=== PATIENT | female | born 1930 | race African-American/Black ===

== ENCOUNTER 2016-08-16 09:21 | Inpatient (IN) ==
--- NOTE | 2016-08-16 09:54 | Emergency Department Note ---
Arrival - Arrival Chief Complaint: Extremity Problem Stated Complaint: legs swollen ED Nursing Triage Note: c/o leg swelling for a while. states has been going to the dr for it and theirs getting worse. Mode of Arrival: Wheelchair Limitations: No Limitations Source: Patient, Family Time Seen by Provider: 08/16/16 09:52 - History of Present Illness HPI Narrative: This 85-year-old female presents to ED complaining of swelling and pain in her lower extremities for 2 months. Family also reports some increased dyspnea over the last several days. There is no history of chest pain. Patient did have a nosebleed last night however she takes Eliquis for atrial fibrillation which she is in chronically. There is no history of any fever or chills. Patient has not been checked for DVT and has no history of DVT. Patient is normally followed by the [facility] and Dr. Gong. Allergies/Adverse Reactions: Allergies Allergy/AdvReac Type Severity Reaction Status Date / Time No Known Allergies Allergy Verified 09/08/15 15:51 Home Medications: Home Medications Medication Instructions Recorded Confirmed Type Allopurinol [Zyloprim] 100 mg PO DAILY 08/05/14 08/16/16 History Apixaban [Eliquis] 2.5 mg PO BID 08/05/14 08/16/16 History Furosemide Tab [Lasix Tab] 80 mg PO BID 08/05/14 08/16/16 History Loratadine [Claritin] 10 mg PO DAILY PRN 08/05/14 08/16/16 History traMADol TAB [Ultram] 50 mg PO Q8H PRN 08/05/14 08/16/16 History Cefdinir 300 mg PO BID 08/16/16 08/16/16 History Review of System - Review of System 12 point system: reviewed and no additional remarkable complaints except as stated - Review of System Respiratory: Present: respiratory distress Musculoskeletal: Present: as per HPI, other (Swelling of both lower extremities) Medical,Surgical,& Family Hx - Medical History Cardio: History of: Cardiac Dysrhythmia (CHRONIC AFIB), CHF, Hypertension Neurology: No history of: Seizures Rheumatology: History of;: Gout Renal: History of: Renal Failure (chronic kidney disease) Musculoskeletal: History of: Musculoskeletal Problems (ARTHRITIS TO RIGHT KNEE) Hematology: History of: Anemia - Social History Smoking Status: Never smoker Frequency of Alcohol Use: None Type of Drug Use: None Exam Vital Signs: Vital Signs Temperature 99.1 F 08/16/16 09:28 Pulse Rate 79 08/16/16 11:01 Respiratory Rate 18 08/16/16 11:01 Blood Pressure 108/65 08/16/16 11:01 O2 Sat by Pulse Oximetry 97 08/16/16 11:01 - General General appearance: alert, in no apparent distress - Head Head exam: Present: atraumatic - Eye Eye exam: Present: normal appearance, PERRL, EOMI - ENT ENT exam: Present: normal exam - Neck Neck exam: Present: normal inspection - Chest Chest inspection: Present: normal inspection - Respiratory Respiratory exam: Present: rales (Bibasilar). Absent: respiratory distress - Cardiovascular Cardiovascular exam: Present: regular rate, irregular rhythm, murmur (3/6 systolic ejection murmur). Absent: +S3 - Abdominal Exam Abdominal exam: Present: soft, normal bowel sounds. Absent: distention, tenderness - Rectal Exam Rectal exam: Present: deferred - Extremities Exam Extremities exam: Present: pedal edema (4+ bilaterally with chronic venous stasis changes) - Back Exam Back exam: Present: normal inspection - Neurological Exam Neurological exam: Present: alert - Psychiatric Psychiatric exam: Present: normal affect, normal mood - Skin Skin exam: Present: warm, dry Course Course Narrative: Patient discussed with the hospitalist who will admit for further evaluation. Results - Labs CBC & BMP: 08/16/16 10:35 08/16/16 10:35 Lab Results: I have reviewed the patients labs - EKG EKG results: interpreted by ERMD (Pacemaker rhythm, PVCs) - Diagnostic Findings Procedure: Chest x-ray: report reviewed by me (Mild congestive heart failure), Ultrasound: report reviewed by me (Ultrasound of the lower extremities showed no DVT.), X-ray: report reviewed by me (X-ray of the right knee reveal severe degenerative arthritis) Disposition Case discussed with: patient, patient's family
[2016-08-16] MEDS ORDERED: FUROSEMIDE 100 MG/10 ML VIAL IV STA (09:55)
--- NOTE | 2016-08-16 10:22 | Ultrasound Report ---
Exam: Bilateral lower extremity venous Doppler ultrasound Comparison: None Clinical history: Leg edema Technique: Duplex scan of the lower extremity veins using B-mode/grayscale scaled imaging and Doppler spectral analysis and color flow. Findings: Major venous structures of the lower extremities demonstrate a normal course and caliber. Normal color-flow study and spectral analysis. There is normal compression and augmentation of bilateral common femoral, superficial femoral and popliteal veins. The proximal bilateral greater saphenous veins appear to be patent. Impression: No evidence to suggest deep venous thrombosis within either lower extremity. Evidence of leg edema. Ultrasound images were captured and stored. PROCEDURE INTERPRETED AT [facility] DEPARTMENT OF RADIOLOGY Final Report Signed by: Dr. Jo Mary
--- NOTE | 2016-08-16 10:42 | XRay Report ---
Portable chest Date: 08/16/2016 Clinical history: Shortness of breath Comparison: 11/18/2015 Technique: Portable AP sitting chest Findings: Persistent prominent cardiomegaly with stable left subclavian ventricular permanent pacemaker. Progressive diffuse parenchymal findings with small pleural effusions. Stable mediastinum with degenerative changes. Chronic deformity of the shoulders. Impression: Persistent prominent cardiomegaly with findings are consistent with mild CHF with small pleural effusions. Left subclavian ventricular pacemaker. PROCEDURE INTERPRETED AT [facility] DEPARTMENT OF RADIOLOGY Final Report Signed by: Dr. Jo Mary
--- NOTE | 2016-08-16 10:46 | XRay Report ---
Exam: XR knee 2V RT Date: 08/16/2016 10:01 AM Comparison: 06/11/2010 Indication: Knee pain after fall Technique:[AP and lateral right knee] Findings: Progressive extensive knee joint space narrowing especially in the lateral compartment with chronic volume loss in the right lateral tibial plateau. Progressive lateral subluxation of the tibia in relationship to the distal femur. Progressive sclerosis with additional multiple ossific densities. 38 mm calcific finding in the suprapatellar location now measures 27 mm. Associated knee joint effusion with no definite acute fracture. Articular and arterial calcifications are noted. Impression: Progressive severe erosive osteoarthritis with progressive lateral subluxation of the proximal tibia in relationship to distal femur. No definite acute fracture is identified. Chronic volume loss in the right lateral tibial plateau which could be related to remote injury. Additional findings of synovial osteochondromatosis, loose bodies, articular calcification, and arterial calcifications. Soft tissue swelling with knee joint effusion. PROCEDURE INTERPRETED AT [facility] DEPARTMENT OF RADIOLOGY Final Report Signed by: Dr. Jo Mary
[2016-08-16 11:12] LABS: Basophils % 1.2 % (0.0-0.8); Eosinophils % 1.2 % (0.00-10.9); Hematocrit 37.8 VOL% (35.7-47.0); Hemoglobin 12.4 GM/DL (12.0-16.0); Immature Granulocytes % 0.3 %; Immature Granulocytes Absolute 0.01 #; Lymphocytes # 0.7 10*3/uL (1.4-4.0); Lymphocytes % 21.4 % (21.3-54.2); Mean Corpuscular HGB Conc 32.8 GM/DL (32-36); Mean Corpuscular Hemoglobin 34 PG (27-34); Mean Corpuscular Volume 102.4 FL (87-102); Mean Platelet Volume 10.1 FL (9.6-12.0); Monocytes # 0.3 10*3/uL (0.11-0.8); Monocytes % 9.9 % (1.7-12.7); Neutrophils # 2.2 10*3/uL (1.4-7.4); Platelet Count 204 T/CUMM (130-400); Red Blood Count 3.69 MC/CUMM (3.8-5.5); Red Cell Distribution Width 14.9 % (9.3-17.3); White Blood Count 3.3 T/CUMM (4-12)
[2016-08-16 11:13] LABS: INR 1.2; PT Patient Result 12.3 SECS
[2016-08-16 11:41] LABS: Albumin 3.3 G/DL (3.4-5.0); Bilirubin,Total 0.8 MG/DL (0.2-1.0); Calcium 9.4 MG/DL (8.5-10.1); Magnesium 3.7 MG/DL (1.8-2.4); Osmolality,Calculated 288.5 MOS/KG (273-304); Potassium 4.9 MMOL/L (3.5-5.1); Total Protein 6.9 G/DL (6.4-8.3)
[2016-08-16 11:44] LABS: Troponin I Only 0.263 NG/ML (0.00-0.045)
--- NOTE | 2016-08-16 12:24 | EKG Report ---
Stationary ECG Study [facility] Test Date: 08/16/2016 10:46:28 AM Pat Name: DIMAS CORRALES Department: Room: Gender: F Trade Marker: : 1930 Requested by: Andrew Renteria Order Number: [id number] Reading MD: HALLE REYES Intervals [place] Rate: 67 P: 999 [place]: 0 QRS: 134 QRSD: 174 T: -37 QT: 521 QTc: 536 Interpretive Statements ELECTRONIC VENTRICULAR PACEMAKER Electronically Signed On 08-22-16 08:25:05 CDT by HALLE REYES [email or web address]
[2016-08-16] MEDS ORDERED: ONDANSETRON 4 MG/2 ML VIAL IV PRN (13:49)
[2016-08-16] MEDS ORDERED: ACETAMINOPHEN 325 MG TABLET PO PRN (13:49)
[2016-08-16] MEDS ORDERED: ZALEPLON 5 MG CAPSULE PO PRN (13:49)
[2016-08-16] MEDS ORDERED: MAGNESIUM SULF RIDER 2 GM in PREMIX 1 EACH IV PRN (13:49)
[2016-08-16] MEDS ORDERED: MAGNESIUM SULF RIDER 4 GM in PREMIX 1 EACH IV PRN (13:49)
--- NOTE | 2016-08-16 13:59 | Hospitalist History & Physical ---
Assessment and Plan (1) CHF (congestive heart failure), NYHA class IV Status: Acute Assessment and plan: lasix 40 mg IV every 12 hours, house place, start coreg Current Visit: Yes (2) Renal failure Status: Acute Assessment and plan: renal us suspect chronic Current Visit: Yes (3) Chronic atrial fibrillation Status: Acute Assessment and plan: s/p pacer, coreg Current Visit: No (4) Arthritis of right knee Status: Acute Assessment and plan: OA with suluxation, Dr. Romo to see, PT and OT Current Visit: Yes History of Present Illness Chief complaint: Shortness of breath History of present illness: Ms. Elise is a 85 year old female presents to ED complaining of swelling in her lower extremities for 2 months and progressive SOB. Family also reports some increasing dyspnea over the last several days but denies chest pain. Patient is on Eliquis for chronic atrial fib which is rate controlled without medication. Patient has chronic problems with gout for which he takes allopurinol. Patient has renal failure which is mostly chronic and may worsen with diuretics. Patient is hard of hearing but lives on her own. The plan for her to go live with her daughter on discharge. No history of any fever or chills. Patient is normally followed by the [facility] and Dr. Gong. Home Medications Medication Instructions Recorded Confirmed Type Allopurinol [Zyloprim] 100 mg PO DAILY 08/05/14 08/16/16 History Apixaban [Eliquis] 2.5 mg PO BID 08/05/14 08/16/16 History Furosemide Tab [Lasix Tab] 80 mg PO BID 08/05/14 08/16/16 History Loratadine [Claritin] 10 mg PO DAILY PRN 08/05/14 08/16/16 History traMADol TAB [Ultram] 50 mg PO Q8H PRN 08/05/14 08/16/16 History Cefdinir 300 mg PO BID 08/16/16 08/16/16 History Allergies Allergy/AdvReac Type Severity Reaction Status Date / Time No Known Allergies Allergy Verified 09/08/15 15:51 Medical,Surgical,& Family Hx - Medical History Cardio: History of: Cardiac Dysrhythmia (CHRONIC AFIB), CHF, Hypertension Neurology: No history of: Seizures Rheumatology: History of;: Gout Renal: History of: Renal Failure (chronic kidney disease) Musculoskeletal: History of: Musculoskeletal Problems (ARTHRITIS TO RIGHT KNEE) Hematology: History of: Anemia - Surgical History Cardiac Surgeries: Sugical HX of: Internal Defibrillator HEENT Surgeries: Surgical HX of: Thyroid Surgery - Family History Family History: Reports;: Family Hypertension Denies;: Family Diabetes, Family Heart Disease - Social History Smoking Status: Never smoker Frequency of Alcohol Use: None Type of Drug Use: None Marital Status: Single Lives With:: Alone Functional capacity: independent ambulation - Constitutional Constitutional: Present: fatigue, weight gain. Absent: fever(s), headache(s) - EENT Eyes: Absent: blurry vision, diplopia Ears: Present: decreased hearing. Absent: ear discharge Nose, mouth and throat: Absent: headache(s), sore throat - Cardiovascular Cardiovascular: Present: dyspnea, dyspnea on exertion, edema, orthopnea. Absent : chest pain at rest, chest pain with activity - Respiratory Respiratory: Present: cough, dyspnea, dyspnea on exertion - Gastrointestinal Gastrointestinal: Present: constipation. Absent: diarrhea, nausea, vomiting - Genitourinary Genitourinary: Absent: difficulty urinating, dysuria - Neurological Neurological: Absent: confusion, headache(s), syncope - Psychiatric Psychiatric: Present: depression. Absent: anxiety - Endocrine Endocrine: Present: cold intolerance, fatigue. Absent: heat intolerance - Hematologic/Lymphatic Hematologic/Lymphatic: Absent: easy bleeding, easy bruising Exam - Constitutional Vitals: Period Temp Pulse Resp BP Sys/Nicholson Pulse Ox Last 24 Hr 98.6 F 59 23 117/77 95 General appearance: mild distress, over weight - Head Head exam: Present: normal inspection, normocephalic - Eye Eye exam: Present: EOMI. Absent: scleral icterus Pupils: Present: NICK, normal accommodation - ENT ENT exam: Present: normal exam, normal external ear exam - Neck Neck exam: Absent: lymphadenopathy, thyromegaly - Respiratory Respiratory exam: Present: decreased breath sounds. Absent: rhonchi, wheezes - Cardiovascular Cardiovascular exam: Present: bradycardia, irregular rhythm - GI/Abdominal GI/Abdominal exam: Present: normal bowel sounds, soft. Absent: tenderness - Extremities Exam Extremities exam: Present: normal capillary refill, edema (3+ pitting up to abdomen ) - Neurological Exam Neurological exam: Present: alert, oriented X3, CN II-XII intact, reflexes normal. Absent: motor sensory deficit - Psychiatric Psychiatric exam: Present: normal mood, flat affect - Skin Skin exam: Present: normal color, warm Results - Labs CBC & BMP: 08/16/16 10:35 08/16/16 10:35 Lab Results: I have reviewed the past 24 hour labs - EKG EKG shows: atrial fibrillation (paced rhythym with PVCs with IVCD and q waves in V1-2 and lead one ) - Diagnostic Findings Procedure: Chest x-ray: report reviewed by me (chf ), Ultrasound: report reviewed by me (no dvt ), X-ray: report reviewed by me (Progressive cervical severe erosive osteoarthritis with lateral subluxation of the proximal tibial to the distal femur no acute fracture noted)
--- NOTE | 2016-08-16 14:52 | EKG Report ---
Stationary ECG Study [facility] Test Date: 08/16/2016 2:50:56 PM Pat Name: DIMAS CORRALES Department: Room: 285 Gender: F Commercial Announcer: : 1930 Requested by: Allyson Batres Order Number: [id number] Reading MD: HALLE REYES Intervals [place] Rate: 73 P: 999 [place]: 0 QRS: -51 QRSD: 130 T: 119 QT: 470 QTc: 496 Interpretive Statements ATRIAL FIBRILLATION WITH DEMAND VENTRICULAR PACEMAKER. MARKED LEFT AXIS DEVIATION LEFT BUNDLE BRANCH BLOCK Electronically Signed On 08-22-16 11:07:10 CDT by HALLE REYES [email or web address]
--- NOTE | 2016-08-16 14:58 | Ultrasound Report ---
Exam: US renal Bilateral Date: 08/16/2016 2:10 PM Comparison: 08/23/2010 Indication: Renal failure Technique:[Multiple transabdominal real-time scans were obtained of the kidneys. Color flow scans obtained. Ultrasound images were captured and stored.] Findings: Right kidney measures 104 x 48 x 35 mm. Right kidney measured 102 mm in length on previous exam. Left kidney measures 107 x 59 x 58 mm. Left kidney measured 109 mm in length on the previous exam. No hydronephrosis. 17 mm simple appearing right mid pole renal cyst. 3 adjacent renal cyst are noted in the upper pole of the left kidney measuring 31 mm, 30 mm, and 42 mm. The kidneys appear echogenic relative to the adjacent liver. Incidental cholelithiasis and left pleural effusion. Impression: No hydronephrosis with bilateral renal cysts. 3 simple appearing cysts project adjacent to one another in the upper pole of the left kidney. Increased echogenicity in the kidneys which can be seen with medical renal disease. Cholelithiasis with left pleural effusion. PROCEDURE INTERPRETED AT [facility] DEPARTMENT OF RADIOLOGY Final Report Signed by: Dr. Jo Mary
--- NOTE | 2016-08-16 16:25 | ECHO Report ---
Treva Elise 08/16/2016 Exam Date: 14:50 Referring Physician: Darlin Gibbs Technologist: ROSEANN Age: 85 Ht (in): 66 Wt (lb): 171 FExam Location: [facility] Gender: Echo [id number]: Heart failure, unspecified, ChronicIndications:kidney disease, unspecified, Presence of cardiac pacemaker, Chronic a fib, Essential (primary) hypertension, Shortness of breath BP: / HR: 60 Atrial fibrillationRhythm: GoodTechnical Quality: IMPRESSIONS 1. Underlying rhythm is atrial fibrillation with controlled ventricular response. 2. Left ventricle is the upper limits normal size to mildly dilated with moderate concentric left ventricular hypertrophy. There is global hypokinesis with an ejection fraction 35-40%. 3. Right ventricle is mildly dilated with mild hypokinesis of free wall thickening. 4. Right and left atria are moderate to severely dilated. 5. Aortic valve is tricuspid with sclerosis and calcification but no stenosis. Trace to mild insufficiency is present. 6. Mitral valve is thickened with mild to moderate regurgitation. 7. Moderate to severe tricuspid valve regurgitation. 8. Mild pulmonic valve insufficiency. 8. Severely elevated right-sided pressures. MEASUREMENTS (Male / Female) Normal Values 2D ECHO LV Diastolic Diameter PLAX 5.4 cm 4.2 - 5.9 / 3.9 - 5.3 cm LV Systolic Diameter PLAX 3.7 cm LV Fractional Shortening PLAX 31.5 % IVS Diastolic Thickness 1.3 cm 0.6 - 1.0 / 0.6 - 0.9 cm LVPW Diastolic Thickness 1.3 cm 0.6 - 1.0 / 0.6 - 0.9 cm RV Internal Dim ED PLAX 3.5 cm Aortic Root Diameter 3.1 cm LA Systolic Diameter LX 4.0 cm 3.0 - 4.0 / 2.7 - 3.8 cm DOPPLER TR Peak Velocity 398.0 cm/s TR Peak Gradient 63.4 mmHg FINDINGS Left Ventricle Mildly increased left ventricular cavity size. Moderate left ventricular hypertrophy. Left ventricular ejection fraction is estimated at 35-40 %. Right Ventricle Right ventricle is mildly dilated with mild hypokinesis. There is RV free wall thickening. Catheter/pacemaker wire visualized in the right ventricle. Right Atrium Severely increased right atrial size. Catheter/pacemaker wire in the right atrial cavity. Left Atrium Moderately increased left atrial size Mitral Valve Thickened mitral valve. Mild-moderate mitral valve regurgitation. Aortic Valve Tricuspid aortic valve with moderate aortic valve calcification. Trace to mild aortic valve regurgitation. No aortic valve stenosis. Tricuspid Valve Morphologically normal tricuspid valve. [id number] tricuspid valve regurgitation. Tricuspid regurgitation velocities suggest a PAP of 73.4 mmHg. Pulmonic Valve Morphologically normal pulmonic valve. Mild pulmonary valve regurgitation. Pericardium Small to moderate pericardial effusion. Hemodynamically insignificant Aorta Normal ascending aorta dimension. Jonas Andres MD (Electronically Signed) 16 Aug 2016 16:24Final Date:
--- NOTE | 2016-08-16 16:28 | EKG Report ---
Stationary ECG Study [facility] Test Date: 08/16/2016 4:28:26 PM Pat Name: DIMAS CORRALES Department: Room: 285 Gender: F Publishing Editor: : 1930 Requested by: Allyson Batres Order Number: [id number] Reading MD: HALLE REYES Intervals [place] Rate: 67 P: 999 [place]: 0 QRS: 137 QRSD: 180 T: -33 QT: 497 QTc: 512 Interpretive Statements ATRIAL TACHYCARDIA/FLUTTER WITH ELECTRONIC VENTRICULAR PACEMAKER Electronically Signed On 08-22-16 11:13:07 CDT by HALLE REYES [email or web address]
[2016-08-16] MEDS: PANTOPRAZOLE 40 MG TABLET PO SCH (17:02)
[2016-08-16] MEDS: FUROSEMIDE 40 MG/4 ML VIAL IV SCH (17:02)
[2016-08-16 17:12] LABS: Apearance,Urine CLEAR (Clear); Bacteria,Urine Occasional /HPF (Few); Bilirubin,Urine Negative (Negative); Blood, Urine Negative (Negative); Glucose,Urine (UA) Negative (Negative); Ketones,Urine Negative (Negative); Mucus,Urine Occasional /LPF (Occasional); Nitrite,Urine Negative (Negative); Protein,Urine Negative; RBC,Urine <1 /HPF (0-4); Urine Color Yellow (Yellow); Urine Specific Gravity 1.011 (1.001-1.035); Urine Urobilinogen < 2.0 EU/DL (0.2-1.0); WBC,Urine <1 /HPF (0-6)
--- NOTE | 2016-08-16 18:07 | Orthopedic Consult Note ---
History of Present Illness Chief complaint: Right knee pain History of present illness: Ms. Elise is a 85 year old female who has a history of severe right knee Jacobo arthritis. I have seen her in the past. I advised her in 2004 to consider a right knee replacement. I have seen her last in 2010 where I injected her knee. The patient lives at home and ambulates either independently or with a cane. Patient has been admitted for CHF and acute on chronic renal failure. She also has a history of gout. The patient is poor historian and may have fallen recently. Exam right lower extremity shows no pain with logroll of her hip. Leg lengths are approximately equal. She has severe right knee osteoarthritis with 3+ pitting edema to the level of her proximal tibia. Because of the severe edema around her foot and ankle, I do not feel palpable pulses. Her toes are warm and pink. She can flex extend her toes. She has a severe valgus deformity at her knee with crepitus with range of motion. The knee is grossly stable to varus valgus stress. Radiographs knee show severe tricompartmental degenerative change with erosive changes involving the lateral compartment and a severe valgus deformity. She also has underlying osteopenia. Impression: Severe right knee osteoarthritis, primary. Plan: Unfortunately, there is not much to offer Ms. Elise with her advanced age and multiple comorbidities. I agree with physical therapy and she would benefit from a walker over a cane. Home Medications Medication Instructions Recorded Confirmed Type Allopurinol [Zyloprim] 100 mg PO DAILY 08/05/14 08/16/16 History Apixaban [Eliquis] 2.5 mg PO BID 08/05/14 08/16/16 History Furosemide Tab [Lasix Tab] 80 mg PO BID 08/05/14 08/16/16 History Loratadine [Claritin] 10 mg PO DAILY PRN 08/05/14 08/16/16 History traMADol TAB [Ultram] 50 mg PO Q8H PRN 08/05/14 08/16/16 History Cefdinir 300 mg PO BID 08/16/16 08/16/16 History Allergies Allergy/AdvReac Type Severity Reaction Status Date / Time No Known Allergies Allergy Verified 09/08/15 15:51 ROS unobtainable: due to dementia Medical,Surgical,& Family Hx - Medical History Cardio: History of: Cardiac Dysrhythmia (CHRONIC AFIB), CHF, Hypertension, Pacemaker (ICD) Psychological: History of: Depression Neurology: No history of: Seizures Rheumatology: History of;: Gout Renal: History of: Renal Failure (chronic kidney disease) Gastrointestinal: History of: GI Problems (constipation) Musculoskeletal: History of: Musculoskeletal Problems (ARTHRITIS TO RIGHT KNEE) Hematology: History of: Anemia - Surgical History Cardiac Surgeries: Sugical HX of: Internal Defibrillator HEENT Surgeries: Surgical HX of: Thyroid Surgery Abdominal Surgeries: Patient denies: Abdominal Surgery - Family History Family History: Reports;: Family Hypertension Denies;: Family Diabetes, Family Heart Disease - Social History Smoking Status: Never smoker Frequency of Alcohol Use: None Type of Drug Use: None Exam - Constitutional Vitals: Period Temp Pulse Resp BP Sys/Nicholson Pulse Ox Last 24 Hr 98.1 F-98.7 F 59-66 18-23 117-139/77-82 95 Results - Labs CBC & BMP: 08/16/16 10:35 08/16/16 10:35 Assessment and Plan (1) Arthritis of right knee Status: Chronic Current Visit: Yes
[2016-08-16] MEDS: CARVEDILOL 3.125 MG TABLET PO SCH (20:59)
[2016-08-16] MEDS: APIXABAN 2.5 MG TABLET PO SCH (20:59)
[2016-08-17 04:51] LABS: Basophils # 0.1 10*3/uL (0.0-0.2); Basophils % 1.1 % (0.0-0.8); Eosinophils # 0.1 10*3/uL (0.0-0.87); Hematocrit 33.8 VOL% (35.7-47.0); Hemoglobin 11.6 GM/DL (12.0-16.0); Immature Granulocytes % 0.5 %; Immature Granulocytes Absolute 0.02 #; Lymphocytes # 1.1 10*3/uL (1.4-4.0); Lymphocytes % 25.2 % (21.3-54.2); Mean Corpuscular HGB Conc 34.3 GM/DL (32-36); Mean Corpuscular Hemoglobin 34 PG (27-34); Mean Corpuscular Volume 99.7 FL (87-102); Mean Platelet Volume 10.3 FL (9.6-12.0); Monocytes # 0.5 10*3/uL (0.11-0.8); Monocytes % 11.1 % (1.7-12.7); Neutrophils # 2.6 10*3/uL (1.4-7.4); Neutrophils % 60.1 % (38.7-73.9); Platelet Count 173 T/CUMM (130-400); Red Blood Count 3.39 MC/CUMM (3.8-5.5); Red Cell Distribution Width 15.1 % (9.3-17.3); White Blood Count 4.4 T/CUMM (4-12)
[2016-08-17 05:31] LABS: Calcium 8.7 MG/DL (8.5-10.1); Osmolality,Calculated 291.3 MOS/KG (273-304); Potassium 4.4 MMOL/L (3.5-5.1); Risk Ratio 2.22; VLDL CHOLESTEROL 15.8 MG/DL
[2016-08-17] MEDS ORDERED: ASPIRIN CHEW 81 MG TABLET PO SCH (09:00)
[2016-08-17] MEDS: FUROSEMIDE 40 MG/4 ML VIAL IV SCH ×2 (09:14→16:05)
[2016-08-17] MEDS: CARVEDILOL 3.125 MG TABLET PO SCH ×2 (09:14→20:49)
[2016-08-17] MEDS: PANTOPRAZOLE 40 MG TABLET PO SCH (09:14)
[2016-08-17] MEDS: APIXABAN 2.5 MG TABLET PO SCH (09:37)
--- NOTE | 2016-08-17 16:14 | Hospitalist Progress Note ---
Assessment and Plan (1) CHF (congestive heart failure), NYHA class IV Status: Acute Assessment and plan: lasix 40 mg IV every 12 hours, cont coreg Current Visit: Yes (2) Renal failure Status: Acute Assessment and plan: renal us suggest chronic stage 3 disease Current Visit: Yes (3) Chronic atrial fibrillation Status: Acute Assessment and plan: s/p pacer, cont coreg, hold eliquis due to bleeding Current Visit: No (4) Arthritis of right knee Status: Chronic Assessment and plan: severe OA not surgical candidate. cont pt Current Visit: Yes (5) Hematuria Status: Acute Assessment and plan: hold eliquis and asa Current Visit: Yes Hospitalist: Subjective Interval history: Patient still has significant swelling. Daughter at bedside and given an update. Patient developed hematuria and her eliquis and asa were stopped. Exam - Constitutional Vitals: Period Temp Pulse Resp BP Sys/Nicholson Pulse Ox Last 24 Hr 97.6 F-98.7 F 61-70 16-20 96-121/49-71 99-100 Exam: Heart Rate-[IRR] Lungs-[diminished] GI-[+bs soft, NT] Ext-[3+ pitting edema to her abdomen] Neuro [Motor 5/5], [alert and oriented times 3] psych [normal mood and flat affect] General [no acute distress] Results - Labs CBC & BMP: 08/17/16 04:00 08/17/16 04:00 Lab Results: I have reviewed the past 24 hour labs - Diagnostic Findings Procedure: Ultrasound: report reviewed by me (Renal ultrasound consistent with medical renal disease. Echo Ef 35%, MR, severe TR, pul htn )
[2016-08-18 06:14] LABS: Basophils % 0.6 % (0.0-0.8); Eosinophils # 0.1 10*3/uL (0.0-0.87); Hematocrit 36.2 VOL% (35.7-47.0); Hemoglobin 12.3 GM/DL (12.0-16.0); Immature Granulocytes % 0.2 %; Immature Granulocytes Absolute 0.01 #; Lymphocytes # 1.2 10*3/uL (1.4-4.0); Lymphocytes % 22.9 % (21.3-54.2); Mean Corpuscular Hemoglobin 34 PG (27-34); Mean Corpuscular Volume 100.6 FL (87-102); Mean Platelet Volume 10.3 FL (9.6-12.0); Monocytes # 0.6 10*3/uL (0.11-0.8); Monocytes % 10.8 % (1.7-12.7); Neutrophils # 3.2 10*3/uL (1.4-7.4); Neutrophils % 63.5 % (38.7-73.9); Platelet Count 183 T/CUMM (130-400); White Blood Count 5.1 T/CUMM (4-12)
[2016-08-18 06:44] LABS: Calcium 8.8 MG/DL (8.5-10.1); Osmolality,Calculated 291.3 MOS/KG (273-304); Potassium 4.2 MMOL/L (3.5-5.1)
[2016-08-18] MEDS: PANTOPRAZOLE 40 MG TABLET PO SCH (08:16)
[2016-08-18] MEDS: FUROSEMIDE 40 MG/4 ML VIAL IV SCH ×2 (08:16→15:52)
[2016-08-18] MEDS: CARVEDILOL 3.125 MG TABLET PO SCH ×2 (08:16→21:21)
--- NOTE | 2016-08-18 11:31 | Physician Query Form ---
CLICK EDIT DOCUMENT TO SELECT QUERY ANSWER --> OK --> SIGN Linnea Hsu RN Clinical Nurse Advocate W) [phone] (f) [phone] [email or web address] PROVIDERS: Make your selection(s) from the choices in EACH section by typing an "x" and enter comments in the comment section. Please use your independent medical judgment in providing your response. This request does not imply that any particular answer is desired or expected. CLINICAL INDICATORS: (Providers should not edit this section) Based on documentation of "Patient developed hematuria and her eliquis and asa were stopped." Based on the above, could you clarify the appropriate diagnosis, if significant , that supports the above abnormalities and additional evaluation, monitoring, and/or treatment rendered: (x ) Hematuria due to anticoagulant therapy ( ) Hematuria NOT due to anticoagulant therapy ( ) Other, please specify: ( ) Clinically unable to determine COMMENTS: Use of terms such as suspected, likely, or probable (associated with a specific diagnosis that is being evaluated, monitored, or treated as if it exists) are acceptable and can be restated in the discharge summary if not ruled out. [facility]
[2016-08-18] MEDS: POLYETHYLENE GLYCOL POWDER 17 GM PACK PO SCH (12:51)
[2016-08-18] MEDS: BISACODYL 5 MG TABLET PO SCH (12:51)
--- NOTE | 2016-08-18 13:47 | Hospitalist Progress Note ---
Assessment and Plan (1) CHF (congestive heart failure), NYHA class IV Status: Acute Assessment and plan: Continue Lasix 40 mg IV every 12 hours, cont coreg, echocardiogram showed an EF of 35-40% with severe tricuspid regurg, mitral regurg and severe pulmonary hypertension Current Visit: Yes (2) Renal failure Status: Acute Assessment and plan: Continue to monitor, chronic stage 3 disease Current Visit: Yes (3) Chronic atrial fibrillation Status: Acute Assessment and plan: s/p pacer, cont coreg, continue to hold Eliquis due to bleeding Current Visit: No (4) Arthritis of right knee Status: Chronic Assessment and plan: severe OA not surgical candidate. cont pt Current Visit: Yes (5) Hematuria Status: Acute Assessment and plan: Still persist, hold eliquis and asa Current Visit: Yes Hospitalist: Subjective Interval history: Patient still having bleeding from catheter. Flush as needed. Patient is too weak to go back home to live with her daughter at this point. I recommend rehab and daughter is agreed. Patient is requested a laxative. Will get PT to evaluate her. Exam - Constitutional Vitals: Period Temp Pulse Resp BP Sys/Nicholson Pulse Ox Last 24 Hr 97.1 F-98.4 F 60-90 16-20 97-110/52-76 90-100 Exam: Heart Rate-[IRR] Lungs-[clear but diminished] GI-[+bs soft, NT] Ext-[2+ pitting edema to her abdomen] Neuro [Motor 5/5], [alert and oriented times 2] psych [normal mood and flat affect] General [no acute distress] Results - Labs CBC & BMP: 08/18/16 05:08 08/18/16 05:08 Lab Results: I have reviewed the past 24 hour labs
--- NOTE | 2016-08-18 17:59 | Urology Consultation ---
Assessment and Plan - Time spent with patient Time spent with patient: Less than 30 minutes (1) Hematuria Status: Acute Assessment and plan: I have ordered a renal ultrasound. We will remove the catheter in the morning. If she goes to swing bed then we will reappoint her to the office and we will schedule cystoscopy. Current Visit: Yes History of Present Illness - Data of Consult Patient: new to practice Consult date: 08/18/16 Requesting Physician: Allyson Mayen - Consult Narrative Reason for consult: Hematuria History of present illness: Ms. Elise is a 85 year old female who has multiple medical problems. She has some cardiac problems which include valvular regurg and pulmonary hypertension. They began her on Eliquis. She began having gross hematuria. Eliquis is been stopped. Now her urine is clearing up. She is planning to be transferred to swing bed tomorrow. If urine remains clear in the morning we will remove her catheter. I will check a renal ultrasound. In the future she needs cystoscopy. CC: Allyson Mayen MD - Home Medications and Allergies Home Medications: Home Medications Medication Instructions Recorded Confirmed Type Allopurinol [Zyloprim] 100 mg PO DAILY 08/05/14 08/16/16 History Apixaban [Eliquis] 2.5 mg PO BID 08/05/14 08/16/16 History Furosemide Tab [Lasix Tab] 80 mg PO BID 08/05/14 08/16/16 History Loratadine [Claritin] 10 mg PO DAILY PRN 08/05/14 08/16/16 History traMADol TAB [Ultram] 50 mg PO Q8H PRN 08/05/14 08/16/16 History Cefdinir 300 mg PO BID 08/16/16 08/16/16 History Allergies/Adverse Reactions: Allergies Allergy/AdvReac Type Severity Reaction Status Date / Time No Known Allergies Allergy Verified 09/08/15 15:51 Exam - Constitutional Vitals: Period Temp Pulse Resp BP Sys/Nicholson Pulse Ox Last 24 Hr 97.1 F-98.3 F 60-90 16-20 97-110/52-76 90-100 Results - Labs CBC & BMP: 08/18/16 05:08 08/18/16 05:08
[2016-08-19 05:00] LABS: Basophils % 0.4 % (0.0-0.8); Eosinophils # 0.1 10*3/uL (0.0-0.87); Eosinophils % 1.9 % (0.00-10.9); Hematocrit 35.6 VOL% (35.7-47.0); Immature Granulocytes % 0.4 %; Immature Granulocytes Absolute 0.02 #; Lymphocytes # 1.1 10*3/uL (1.4-4.0); Lymphocytes % 22.2 % (21.3-54.2); Mean Corpuscular HGB Conc 33.7 GM/DL (32-36); Mean Corpuscular Hemoglobin 34 PG (27-34); Mean Corpuscular Volume 99.4 FL (87-102); Monocytes # 0.6 10*3/uL (0.11-0.8); Monocytes % 11.8 % (1.7-12.7); Neutrophils % 63.3 % (38.7-73.9); Platelet Count 170 T/CUMM (130-400); Red Blood Count 3.58 MC/CUMM (3.8-5.5); White Blood Count 4.7 T/CUMM (4-12)
[2016-08-19 05:31] LABS: Calcium 8.4 MG/DL (8.5-10.1); Osmolality,Calculated 288.4 MOS/KG (273-304); Potassium 4.1 MMOL/L (3.5-5.1)
[2016-08-19] MEDS: POLYETHYLENE GLYCOL POWDER 17 GM PACK PO SCH (09:16)
[2016-08-19] MEDS: BISACODYL 5 MG TABLET PO SCH (09:16)
[2016-08-19] MEDS: CARVEDILOL 3.125 MG TABLET PO SCH ×2 (09:16→20:29)
[2016-08-19] MEDS: PANTOPRAZOLE 40 MG TABLET PO SCH (09:17)
[2016-08-19] MEDS: FUROSEMIDE 40 MG/4 ML VIAL IV SCH ×2 (09:20→15:26)
--- NOTE | 2016-08-19 15:52 | Hospitalist Progress Note ---
Assessment and Plan (1) CHF (congestive heart failure), NYHA class IV Status: Acute Assessment and plan: Decrease Lasix to once a day. Continue Coreg twice a day. Echocardiogram shows an EF of 35-40% Current Visit: Yes (2) Renal failure Status: Acute Assessment and plan: Stable stage III Current Visit: Yes (3) Chronic atrial fibrillation Status: Acute Assessment and plan: s/p pacer rate controlled with Coreg. No Eliquis due to bleeding Current Visit: No (4) Arthritis of right knee Status: Chronic Assessment and plan: severe OA not surgical candidate. cont pt Current Visit: Yes (5) Hematuria Status: Acute Assessment and plan: Improving. Will remove Dow. Dr. Whaley is seen. Continue to hold Eliquis and aspirin. Current Visit: Yes Hospitalist: Subjective Interval history: Spoke to physical therapy. Patient is mod assist to get out of the bed and up, but does okay when she is up. Patient has been accepted to rehab and I will let her go on Monday. Still having some hematuria. Dr. Whaley wants to remove the Dow today. Exam - Constitutional Vitals: Period Temp Pulse Resp BP Sys/Nicholson Pulse Ox Last 24 Hr 96.7 F-98.3 F 59-127 16-18 99-111/63-80 90-100 Exam: Heart Rate-[IRR] Lungs-[clear GI-[+bs soft, NT] Ext-[1+ pitting edema to her abdomen] Neuro [Motor 5/5 but weak], [alert and oriented times 2] psych [normal mood and flat affect] General [no acute distress] Results - Labs CBC & BMP: 08/19/16 03:35 08/19/16 03:35 Lab Results: I have reviewed the past 24 hour labs Specialty Discharge - Follow Up or Referrals Follow up with: Oleg Whaley MD [Physician] - 1 Month
[2016-08-19] MEDS ORDERED: MAGNESIUM CITRATE 300 ML BOTTLE PO ONE (16:06)
[2016-08-20] MEDS ORDERED: FUROSEMIDE 40 MG/4 ML VIAL IV SCH (09:00)
[2016-08-20] MEDS: POLYETHYLENE GLYCOL POWDER 17 GM PACK PO SCH (09:11)
[2016-08-20] MEDS: BISACODYL 5 MG TABLET PO SCH (09:11)
[2016-08-20] MEDS: CARVEDILOL 3.125 MG TABLET PO SCH ×2 (09:11→20:43)
[2016-08-20] MEDS: metOLazone 5 MG TABLET PO SCH (09:11)
[2016-08-20] MEDS: PANTOPRAZOLE 40 MG TABLET PO SCH (09:11)
[2016-08-20] MEDS: FUROSEMIDE 40 MG/4 ML VIAL IV SCH ×2 (09:12→20:43)
--- NOTE | 2016-08-20 14:03 | Hospitalist Progress Note ---
Assessment and Plan (1) CHF (congestive heart failure), NYHA class IV Status: Acute Assessment and plan: BNP 1162, Continue Coreg twice a day. cont lasix IV and zaroxlyn. Echocardiogram shows an EF of 35-40% Current Visit: Yes (2) Renal failure Status: Acute Assessment and plan: Stable stage III Current Visit: Yes (3) Chronic atrial fibrillation Status: Acute Assessment and plan: s/p pacer rate controlled with Coreg. No Eliquis due to bleeding Current Visit: No (4) Arthritis of right knee Status: Chronic Assessment and plan: severe OA not surgical candidate. cont pt Current Visit: Yes (5) Hematuria Status: Acute Assessment and plan: Improving. Current Visit: Yes Hospitalist: Subjective Interval history: BNP is still rising. Patient still having some bloody urine. Dow was removed and patient is urinating. Exam - Constitutional Vitals: Period Temp Pulse Resp BP Sys/Nicholson Pulse Ox Last 24 Hr 98 F-98.9 F 60-70 16-20 98-112/58-70 92-98 Exam: Heart Rate-[IRR] Lungs-[clear GI-[+bs soft, NT] Ext-[1+ pitting edema to her abdomen] Neuro [Motor 5/5 but weak], [alert and oriented times 2] psych [normal mood and flat affect] General [no acute distress] Results - Labs CBC & BMP: 08/19/16 03:35 08/19/16 03:35 Lab Results: I have reviewed the past 24 hour labs Specialty Discharge - Follow Up or Referrals Follow up with: Oleg Whaley MD [Physician] - 1 Month
[2016-08-21] MEDS: BISACODYL 5 MG TABLET PO SCH (08:45)
[2016-08-21] MEDS: PANTOPRAZOLE 40 MG TABLET PO SCH (08:45)
[2016-08-21] MEDS: metOLazone 5 MG TABLET PO SCH (08:45)
[2016-08-21] MEDS: CARVEDILOL 3.125 MG TABLET PO SCH ×2 (08:45→20:26)
[2016-08-21] MEDS: FUROSEMIDE 40 MG/4 ML VIAL IV SCH ×2 (08:46→20:26)
[2016-08-21] MEDS: POLYETHYLENE GLYCOL POWDER 17 GM PACK PO SCH (08:51)
--- NOTE | 2016-08-21 10:15 | Hospitalist Progress Note ---
Assessment and Plan (1) CHF (congestive heart failure), NYHA class IV Status: Acute Assessment and plan: Continue Coreg, lasix and zaroxlyn. Echocardiogram shows an EF of 35-40% Current Visit: Yes (2) Renal failure Status: Acute Assessment and plan: Stable stage III Current Visit: Yes (3) Chronic atrial fibrillation Status: Acute Assessment and plan: s/p pacer rate controlled with Coreg. No Eliquis due to bleeding Current Visit: No (4) Arthritis of right knee Status: Chronic Assessment and plan: severe OA not surgical candidate. cont pt Current Visit: Yes (5) Hematuria Status: Acute Assessment and plan: Improving. Current Visit: Yes (6) Pulmonary hypertension Status: Acute Assessment and plan: Patient has severe pulmonary hypertension continue oxygen for support Current Visit: Yes Hospitalist: Subjective Interval history: Hematuria improving. Accepted to rehab tomorrow. Should be okay for her to go. Fluid status better. Exam - Constitutional Vitals: Period Temp Pulse Resp BP Sys/Nicohlson Pulse Ox Last 24 Hr 98 F-99.5 F 59-70 18-20 91-106/50-70 93-98 Exam: Heart Rate-[IRR] Lungs-[clear GI-[+bs soft, NT] Ext-[1+ pitting edema to her abdomen] Neuro [Motor 5/5 but weak], [alert and oriented times 2] psych [normal mood and flat affect] General [no acute distress] Results - Labs CBC & BMP: 08/19/16 03:35 08/19/16 03:35 Lab Results: I have reviewed the past 24 hour labs Specialty Discharge - Follow Up or Referrals Follow up with: Oleg Whaley MD [Physician] - 1 Month
[2016-08-22 05:25] LABS: Calcium 8.3 MG/DL (8.5-10.1); Osmolality,Calculated 284.7 MOS/KG (273-304); Potassium 3.8 MMOL/L (3.5-5.1)
[2016-08-22] MEDS: PANTOPRAZOLE 40 MG TABLET PO SCH (09:14)
[2016-08-22] MEDS: POLYETHYLENE GLYCOL POWDER 17 GM PACK PO SCH (09:14)
[2016-08-22] MEDS: metOLazone 5 MG TABLET PO SCH (09:14)
[2016-08-22] MEDS: BISACODYL 5 MG TABLET PO SCH (09:14)
[2016-08-22] MEDS: FUROSEMIDE 40 MG/4 ML VIAL IV SCH (09:15)
[2016-08-22] MEDS: CARVEDILOL 3.125 MG TABLET PO SCH (09:23)
--- NOTE | 2016-08-22 11:48 | Discharge Summary ---
Hospital Course - Hospital Course Hospital Course: Mrs Elise presented with worsening of her baseline shortness of breath.She had exacerbation of her chronic systolic heart failrue and at baseline has class IV symptoms. She was diuresed and is feeling better and at her baseline. Her renal function had worsened on admission but has also returned to baseline creatinine of 2.2. She is eating ok and working with PT. She will go to swing bed today. She has pulmonary HTN and will benefit from continuous O2. She has a small area of breakdown on her buttock which the wound care nurse is to evaluate and document prior to discharge. The swing bed will continue local care. She had hematuria and her Eliquis which she was on for underlying afib (has pacer now) was stopped. She will need outpatient follow up with Dr Whaley. - Time spent with patient Time with patient DS: Greater than 30 minutes (40 minutes in exam, chart review , discussion with family, medicine reconciliation, documentation.) Diagnosis - Discharge Diagnosis (1) CKD (chronic kidney disease) stage 4, GFR 15-29 ml/min Status: Chronic (2) Chronic atrial fibrillation Status: Chronic (3) Cardiac pacemaker in situ Status: Chronic (4) Arthritis of right knee Status: Chronic (5) CHF (congestive heart failure), NYHA class IV Status: Acute (6) Hematuria Status: Acute (7) Pulmonary hypertension Status: Chronic Specialty Discharge - Follow Up or Referrals Follow up with: Oleg Whaley MD [Physician] - 1 Month your, PCP [Other] - 2 Weeks Discharge Plan - Discharge Data Disposition: Swing Bed, [facility] Based, [facility] Condition at Discharge: Stable Discharge Diet: heart healthy, low salt diet Activity: as per physical therapy, wear oxygen at all times - Discharge Medications New Acetaminophen Tab [Tylenol Tab] 650 mg PO Q4H PRN #0 tablet PRN Reason: Fever, Headache, Mild Pain Bisacodyl Tab [Dulcolax Tab] 10 mg PO DAILY PRN tablet PRN Reason: constipation Carvedilol [Coreg] 3.125 mg PO BID tablet Pantoprazole Tab [Protonix Tab] 40 mg PO DAILY tablet Zaleplon [Sonata] 5 mg PO BEDTIME PRN #0 capsule PRN Reason: Insomnia metOLazone [Zaroxolyn] 5 mg PO DAILY tablet Polyethylene Glycol Powder [Miralax] 17 gm PO DAILY Continue Furosemide Tab [Lasix Tab] 80 mg PO BID Allopurinol [Zyloprim] 100 mg PO DAILY Discontinued Loratadine [Claritin] 10 mg PO DAILY PRN PRN Reason: Sinus Symptoms Apixaban [Eliquis] 2.5 mg PO BID traMADol TAB [Ultram] 50 mg PO Q8H PRN PRN Reason: Pain Cefdinir 300 mg PO BID - Follow Up or Referral Follow Up: Oleg Whaley MD [Physician] - 1 Month - Forms/Instructions Additional Discharge Instructions: continue local wound care to small area of breakdown on buttock. Wound care to see today. Exam - Constitutional Vitals: Period Temp Pulse Resp BP Sys/Nicholson Pulse Ox Last 24 Hr 97.7 F-98.5 F 48-67 16-20 90-118/52-64 94-99 General appearance: normal weight, no acute distress - Head Head exam: Present: normocephalic, atraumatic - Eye Eye exam: Present: EOMI. Absent: scleral icterus - Respiratory Respiratory exam: Present: clear to auscultation bilaterally - Cardiovascular Cardiovascular exam: Present: regular rate and rhythm - GI/Abdominal GI/Abdominal exam: Present: normal bowel sounds, soft - Extremities Exam Extremities exam: Absent: edema - Neurological Exam Neurological exam: Present: alert, oriented X3 - Skin Skin exam: Present: warm, dry Discharge Results Labs on day of discharge: Labs from last 24 hours 08/22/16 04:04 Sodium 138 Potassium 3.8 Chloride 96 L Carbon Dioxide 33 H Anion Gap 12.8 BUN 44 H Creatinine 2.20 H GFR Calculation 24 BUN/Creatinine Ratio 20.00 Glucose 83 Calculated Osmolality 284.7 Calcium 8.3 L DS: Provider Date of admission: 08/16/16 12:31 Primary care physician: . No PCP Attending physician on admission: Allyson Mayen MD Consults: 08/16/16 14:07 Consult to Physician [CONS] Routine Comment: right knee severe OA with subluxation Consulting Provider: Dominic Romo Jr. When should Consulting Provider be notified: Now Consult to Specialist Group: Orthopedic Person Notified: MARIE Date Notified: 08/16/16 Time Notified: 14:30 08/16/16 14:08 Consult to Occupational Therapy [CONS] Routine Reason for Occupational Therapy: Evaluate and Treat Consult to Physical Therapy [CONS] Routine Reason for Physical Therapy: Evaluate and Treat 08/18/16 10:58 Consult to Case Mgmt/Social Srvs [CONS] Routine Reason for Case Mgmt/Social Srvs: Discharge Planning Consult Comment: SB placement 08/18/16 13:50 Consult to Physician [CONS] Routine Comment: persistent hematuria, despite holding eliquis asa Consulting Provider: Oleg Whaley When should Consulting Provider be notified: Now Person Notified: Phoebe Date Notified: 08/18/16 Time Notified: 13:55 Discharging clinician: Sandra De Oliveira MD
[2016-08-22] MEDS ORDERED: DESITIN 4OZ/NYSTATIN 15 GRAM MIXTURE PASTE TOP SCH (12:00)
[2016-08-22 12:18] VITALS: BP 92/56
== END 2016-08-22 13:30 | disposition swing bed (61) | DRG 292 ==
LOC: N.ED 09:21 → N.EDINP 12:31 → SUATTDRO 12:31 → N.TELEN 12:46
PROVIDERS: ADMIT Internal Medicine; ATTEND Internal Medicine

== ENCOUNTER 2016-09-11 17:20 | Inpatient (IN) ==
[2016-09-11] MEDS ORDERED: methylPREDNISolone SOD SUC 125 MG/2 ML VIAL IV STA (17:55)
[2016-09-11] MEDS ORDERED: MORPHINE 2 MG/1 ML SYRINGE IV STA (17:55)
[2016-09-11] MEDS ORDERED: ALBUTEROL/IPRATROPIUM 3 ML NEB RESP TX STA (17:55)
[2016-09-11] MEDS ORDERED: ALUM/MAG/SIMETH/LIDO VISC 1:1 30 ML BOTTLE PO STA (17:55)
[2016-09-11] MEDS ORDERED: ONDANSETRON 4 MG/2 ML VIAL IV STA (17:55)
[2016-09-11] MEDS ORDERED: FUROSEMIDE 40 MG/4 ML VIAL IV STA ×2 (17:55→18:59)
[2016-09-11] MEDS ORDERED: ASPIRIN 325 MG TABLET PO STA (17:55)
--- NOTE | 2016-09-11 18:00 | EKG Report ---
Stationary ECG Study [facility] ER Test Date: 09/11/2016 5:41:07 PM Pat Name: DIMAS CORRALES Department: Room: 286 Gender: F Director Of Group Counseling Program: : 1930 Requested by: Evangelist Denton Order Number: [id number] Laura MD: URI ZACARIAS Intervals [place] Rate: 84 P: 999 WV: 0 QRS: -76 QRSD: 129 T: 110 QT: 412 QTc: 453 Interpretive Statements ATRIAL FIBRILLATION WITH ABERRANT CONDUCTION OR VENTRICULAR PREMATURE COMPLEXES POSSIBLE ANTERIOR MYOCARDIAL INFARCTION, OF INDETERMINATE AGE INFERIOR MYOCARDIAL INFARCTION, OLD Electronically Signed On 09-12-16 16:25:15 CDT by UIR ZACARIAS [email or web address]
[2016-09-11 18:02] LABS: Basophils % 0.1 % (0.0-0.8); Hematocrit 42.9 VOL% (35.7-47.0); Hemoglobin 15.1 GM/DL (12.0-16.0); Immature Granulocytes % 0.5 %; Immature Granulocytes Absolute 0.04 #; Lymphocytes # 0.9 10*3/uL (1.4-4.0); Lymphocytes % 11.6 % (21.3-54.2); Mean Corpuscular HGB Conc 35.2 GM/DL (32-36); Mean Corpuscular Hemoglobin 34 PG (27-34); Mean Corpuscular Volume 97.3 FL (87-102); Mean Platelet Volume 10.1 FL (9.6-12.0); Monocytes # 0.5 10*3/uL (0.11-0.8); Monocytes % 6.8 % (1.7-12.7); Neutrophils # 6.2 10*3/uL (1.4-7.4); Platelet Count 148 T/CUMM (130-400); Red Blood Count 4.41 MC/CUMM (3.8-5.5); Red Cell Distribution Width 13.2 % (9.3-17.3); White Blood Count 7.7 T/CUMM (4-12)
[2016-09-11] MEDS ORDERED: ONDANSETRON 4 MG/2 ML VIAL ONE (18:06)
[2016-09-11] MEDS ORDERED: FUROSEMIDE 40 MG/4 ML VIAL ONE ×2 (18:06→19:04)
[2016-09-11] MEDS ORDERED: MORPHINE 2 MG/1 ML SYRINGE ONE (18:07)
[2016-09-11] MEDS ORDERED: ASPIRIN 325 MG TABLET ONE (18:07)
[2016-09-11] MEDS ORDERED: methylPREDNISolone SOD SUC 125 MG/2 ML VIAL ONE (18:08)
[2016-09-11] MEDS ORDERED: ALUM/MAG/SIMETH/LIDO VISC 1:1 30 ML BOTTLE PO ONE (18:08)
--- NOTE | 2016-09-11 18:09 | Emergency Department Note ---
Andrés Jackson Emily, am scribing for, and in the presence of, Evangelist Chua MD 17: 56. Toma Jackson Charles R, MD, personally performed the services described in this documentation, ascribed by Michelle Bowen in my presence, and it is both accurate and complete 808 . Arrival - Arrival Chief Complaint: Chest Pain Stated Complaint: chest pain ED Nursing Triage Note: c/o having chest pain x 30 minute,+ sob., + coughing and congestion, decrease appetite., denies vomiting., denies having increase temp, + chills., states sleeping more than usual Mode of Arrival: Wheelchair Limitations: No Limitations Source: Patient Time Seen by Provider: 09/11/16 17:36 - History of Present Illness HPI Narrative: Pt is 85 y/o female who came to ED with c/o SOB and chest pain that started 30 minutes [employer]IOR [employer] DEVEL[employer]. Pt notes chest pain has resolved but SOB is lingering. Pt has associated sxs of RODRIGUEZ, bilateral pedal edema, wet cough, and decreased appetite. Pt has low grade fever in ED but denies any at home. Pt is not on blood thinners or aspirin and recently taken off water pills. Pt was d/c at [facility] on Monday for swing bed. PMhx of CHF. Pt lives with daughter in which reports barely moving around and is not on at home O2. Onset (ago): minute(s) Consistency: constant Severity: moderate Severity scale (1-10): 6 Quality: fullness Allergies/Adverse Reactions: Allergies Allergy/AdvReac Type Severity Reaction Status Date / Time No Known Allergies Allergy Verified 09/11/16 17:27 Home Medications: Home Medications Medication Instructions Recorded Confirmed Type Loratadine [Loratadine] 10 mg PO DAILY PRN 09/11/16 09/11/16 History Potassium Chloride 20 meq PO BID 09/11/16 09/11/16 History Review of System - Review of System 12 point system: reviewed and no additional remarkable complaints except as stated - Review of System Constitutional: Present: weakness. Absent: chills, fever Head/Ears/Nose/Throat: Absent: sore throat Respiratory: Present: cough, respiratory distress Cardiovascular: Present: chest pain, dyspnea on exertion, orthopnea, edema. Absent: syncope Gastrointestinal: Absent: abdominal pain, nausea, vomiting, diarrhea Skin: Absent: rash Neurological: Absent: headache Psychiatric: Absent: anxiety Medical,Surgical,& Family Hx - Medical History Cardio: History of: Cardiac Dysrhythmia (CHRONIC AFIB), CHF, Hypertension, Pacemaker (ICD) Psychological: History of: Depression Neurology: No history of: Seizures Rheumatology: History of;: Gout Renal: History of: Renal Failure (chronic kidney disease) Gastrointestinal: History of: GI Problems (constipation) Musculoskeletal: History of: Musculoskeletal Problems (ARTHRITIS TO RIGHT KNEE) No history of: Amputation Hematology: History of: Anemia - Surgical History Cardiac Surgeries: Sugical HX of: Internal Defibrillator HEENT Surgeries: Surgical HX of: Thyroid Surgery (1999) Patient denies: Tonsilectomy & Adenoidectomy Abdominal Surgeries: Surgical HX of: Colonoscopy Patient denies: Abdominal Surgery Reproductive Surgeries: Patient denies;: Genitourinary Surgery, Gynecologic Surgery - Family History Family History: noncontributory Family History: Reports;: Family Heart Disease, Family Hypertension Denies;: Family Diabetes - Social History Smoking Status: Never smoker Frequency of Alcohol Use: None Type of Drug Use: None Marital Status: Single Lives With:: Children Functional capacity: independent ambulation Exam Vital Signs: Vital Signs Temperature 100.0 F H 09/11/16 17:31 Pulse Rate 71 09/11/16 18:30 Respiratory Rate 12 09/11/16 18:30 Blood Pressure 107/75 09/11/16 18:30 O2 Sat by Pulse Oximetry 100 09/11/16 18:30 - General General appearance: alert, in no apparent distress - Head Head exam: Present: atraumatic, normocephalic - Eye Eye exam: Present: PERRL, EOMI - ENT ENT exam: Present: mucous membranes moist. Absent: mucous membranes dry - Neck Neck exam: Present: full ROM. Absent: tenderness - Chest Chest inspection: Present: symmetric chest wall rise. Absent: tenderness - Respiratory Respiratory exam: Present: rales, respiratory distress (mild), rhonchi (harsh), wheezes. Absent: normal lung sounds bilaterally - Cardiovascular Cardiovascular exam: Present: regular rate, normal rhythm, normal heart sounds - Abdominal Exam Abdominal exam: Present: soft. Absent: distention, tenderness - Extremities Exam Extremities exam: Present: full ROM, pedal edema (discoloration from chronic swelling but has improved; +2). Absent: tenderness - Neurological Exam Neurological exam: Present: alert, oriented X3, CN II-XII intact. Absent: motor sensory deficit - Psychiatric Psychiatric exam: Present: normal affect, normal mood - Skin Skin exam: Present: warm, dry Course - Consultations Consultation #1: Hospitalist will admit patient Time: 19:05 Results - Labs CBC & BMP: 09/11/16 17:51 09/11/16 17:51 Lab Results: I have reviewed the patients labs Labs: Laboratory Tests 09/11/16 17:51 Neut % (Auto) 81.0 H Lymph % (Auto) 11.6 L Lymph # (Auto) 0.9 L Laboratory Tests 09/11/16 17:51 Troponin I 0.339 H Laboratory Tests 09/11/16 09/11/16 09/11/16 17:51 17:51 18:26 Sodium 132 L Chloride 89 L Carbon Dioxide 34 H BUN 66 H Creatinine 2.30 H BUN/Creatinine Ratio 28.00 H Glucose 115 H Magnesium 3.0 H Alkaline Phosphatase 164 H B-Natriuretic Peptide 1635 H Albumin 3.0 L Globulin 4.9 H Albumin/Globulin Ratio 0.6 L Urine Appearance Slightly hazy Urine pH 6.0 Ur Specific Kramer 1.013 Urine Protein 30 Urine Blood Negative Urine Urobilinogen 2.0 H Urine Leukocytes Small H Urine RBC 2 Urine WBC 8 Ur Squamous Epith Cells Occasional Ur Transition Epith Cell Occasional Hyaline Casts 1 Urine Mucus Occasional Critical Care Time Critical Care Time: Yes Total Critical Care Time: 60 Disposition Clinical Impression: Chest pain, Atypical chest pain, Peripheral edema, CHF (congestive heart failure), NYHA class IV, Renal failure, CKD (chronic kidney disease) stage 4, GFR 15-29 ml/min, Debility, Chronic atrial fibrillation, Cardiac pacemaker in situ, Fever, UTI (urinary tract infection) Case discussed with: patient, patient's family Disposition: Still a Patient Condition: Guarded Time of Disposition: 19:06
[2016-09-11 18:11] LABS: PT Patient Result 10.9 SECS
[2016-09-11 18:27] LABS: Calcium 9.8 MG/DL (8.5-10.1); Osmolality,Calculated 283.5 MOS/KG (273-304); Potassium 4.7 MMOL/L (3.5-5.1); Total Protein 7.9 G/DL (6.4-8.3)
[2016-09-11 18:51] LABS: Apearance,Urine Slightly Hazy (Clear); Bilirubin,Urine Negative (Negative); Blood, Urine Negative (Negative); Glucose,Urine (UA) Negative (Negative); Hyaline Casts,Urine 1 /LPF (0-3); Ketones,Urine Negative (Negative); Mucus,Urine Occasional /LPF (Occasional); Nitrite,Urine Negative (Negative); Protein,Urine 30 MG/DL; RBC,Urine 2 /HPF (0-4); Squamous Epithelial Cell,Urine Occasional /HPF (0-10); Transitional Epi Cells,Urine Occasional /HPF (<1); Urine Color Yellow (Yellow); Urine Specific Gravity 1.013 (1.001-1.035); WBC,Urine 8 /HPF (0-6)
[2016-09-11] MEDS ORDERED: cefTRIAXone 1,000 MG in SODIUM CHLORIDE 0.9% 100 ML IV STA (19:01)
--- NOTE | 2016-09-11 19:37 | Hospitalist History & Physical ---
Assessment and Plan (1) Chronic atrial fibrillation Status: Chronic Current Visit: Yes (2) Cardiac pacemaker in situ Status: Chronic Current Visit: Yes (3) Renal failure Status: Acute Current Visit: Yes (4) CKD (chronic kidney disease) stage 4, GFR 15-29 ml/min Status: Chronic Current Visit: Yes (5) Debility Status: Acute Current Visit: Yes (6) Chest pain Status: Acute Current Visit: Yes (7) Atypical chest pain Status: Acute Current Visit: Yes (8) Fever Status: Acute Current Visit: Yes (9) UTI (urinary tract infection) Status: Acute Assessment and plan: Our plan for this patient will be admitting her to a monitored bed. She had recently been started on potassium. Her potassium is 4.7 today. Her creatinine is bumped a little bit but she does have chronic renal insufficiency. Do feel that we are going to use some IV Lasix to to drink her resolve her symptoms with her heart failure. Will trend out the cardiac enzymes troponin currently is 0.339. BNP is 1635. We will repeat the troponins. Going to put her on IV antibiotics for treatment of this urinary tract infection. Discussed CODE STATUS with the family and daughter would not want her coded. Current Visit: Yes History of Present Illness Chief complaint: Chest pain History of present illness: Ms. Elise is a 85 year old female with multiple medical problems comes in today complaining of chest pain. Patient just got out of swing bed Monday. She spent 2 weeks there and according to family did not really participate with therapy that much. She has not really been eating lately. Today she says she was hurting in her heart. She says that she has been really weak. And patient was also noted as having a fever. I was consulted to admit the patient. Home Medications Medication Instructions Recorded Confirmed Type Loratadine [Loratadine] 10 mg PO DAILY PRN 09/11/16 09/11/16 History Potassium Chloride 20 meq PO BID 09/11/16 09/11/16 History Allergies Allergy/AdvReac Type Severity Reaction Status Date / Time No Known Allergies Allergy Verified 09/11/16 17:27 Medical,Surgical,& Family Hx - Medical History Cardio: History of: Cardiac Dysrhythmia (CHRONIC AFIB), CHF, Hypertension, Pacemaker (ICD) Psychological: History of: Depression Neurology: No history of: Seizures Rheumatology: History of;: Gout Renal: History of: Renal Failure (chronic kidney disease) Gastrointestinal: History of: GI Problems (constipation) Musculoskeletal: History of: Musculoskeletal Problems (ARTHRITIS TO RIGHT KNEE) No history of: Amputation Hematology: History of: Anemia - Surgical History Cardiac Surgeries: Sugical HX of: Internal Defibrillator HEENT Surgeries: Surgical HX of: Thyroid Surgery (1999) Patient denies: Tonsilectomy & Adenoidectomy Abdominal Surgeries: Surgical HX of: Colonoscopy Patient denies: Abdominal Surgery Reproductive Surgeries: Patient denies;: Genitourinary Surgery, Gynecologic Surgery - Family History Family History: Reports;: Family Heart Disease, Family Hypertension Denies;: Family Diabetes - Social History Smoking Status: Never smoker Frequency of Alcohol Use: None Type of Drug Use: None 12 point system: reviewed and no additional remarkable complaints except as stated Exam - Constitutional Vitals: Period Temp Pulse Resp BP Sys/Nicholson Pulse Ox Last 24 Hr 100.0 F-100.0 F 68-98 12-30 107-117/72-81 96-100 - General General appearance: alert, in no apparent distress - Head Head exam: Present: atraumatic, normocephalic - Eye Eye exam: Present: PERRL, EOMI - ENT ENT exam: Present: mucous membranes moist. Absent: mucous membranes dry - Neck Neck exam: Present: full ROM. Absent: tenderness - Chest Chest inspection: Present: symmetric chest wall rise. . - Respiratory Respiratory exam: Present: rales, rhonchi, wheezes. - Cardiovascular Cardiovascular exam: Present: regular rate, normal rhythm, normal heart sounds - Abdominal Exam Abdominal exam: Present: soft. Absent: distention, tenderness - Extremities Exam Extremities exam: Present: full ROM, pedal edema - Neurological Exam Neurological exam: Present: alert, oriented X3, CN II-XII intact. Absent: motor sensory deficit - Psychiatric Psychiatric exam: Present: normal affect, normal mood - Skin Skin exam: Present: warm, dry Results - Labs CBC & BMP: 09/11/16 17:51 09/11/16 17:51
[2016-09-11] MEDS ORDERED: ONDANSETRON 4 MG/2 ML VIAL IV PRN (19:42)
[2016-09-11] MEDS ORDERED: ACETAMINOPHEN 325 MG TABLET PO PRN (19:42)
--- NOTE | 2016-09-11 19:47 | XRay Report ---
Exam: XR chest 1V portable Indication: Cardiomegaly, chest pain Comparison study: 09/07/2016 radiograph Findings: Cardiac silhouette is markedly enlarged, similar to prior. Left chest Mediport is in similar position. Minimal diffuse interstitial opacities are noted, nonspecific change and may represent underlying atelectasis/scarring. A degree of underlying interstitial edema is also not excluded. There is no focal consolidation, pneumothorax or pleural effusion identified. Advanced degenerative changes within both shoulders are similar to prior. Impression: No significant change in prominent cardiomegaly and minimal interstitial prominence which may represent underlying atelectasis/scarring or a very mild degree of interstitial edema changes. PROCEDURE INTERPRETED AT [facility] DEPARTMENT OF RADIOLOGY Final Report Signed by: Anish Vann
[2016-09-11] MEDS ORDERED: ALBUTEROL/IPRATROPIUM 3 ML NEB RESP TX PRN (19:56)
[2016-09-11] MEDS ORDERED: ENOXAPARIN 30 MG/0.3 ML SYRINGE SUBCUT SCH (20:00)
[2016-09-11] MEDS ORDERED: cefTRIAXone 1,000 MG VIAL ONE (20:04)
[2016-09-11] MEDS: CARVEDILOL 3.125 MG TABLET PO SCH (21:25)
[2016-09-11] MEDS: POTASSIUM CHLORIDE 20 MEQ TABLET PO SCH (21:25)
[2016-09-12 00:58] LABS: Basophils % 0.1 % (0.0-0.8); Hematocrit 34.9 VOL% (35.7-47.0); Hemoglobin 11.9 GM/DL (12.0-16.0); Immature Granulocytes % 0.9 %; Immature Granulocytes Absolute 0.07 #; Lymphocytes # 0.6 10*3/uL (1.4-4.0); Lymphocytes % 7.6 % (21.3-54.2); Mean Corpuscular HGB Conc 34.1 GM/DL (32-36); Mean Corpuscular Hemoglobin 33 PG (27-34); Mean Corpuscular Volume 97.8 FL (87-102); Mean Platelet Volume 9.9 FL (9.6-12.0); Monocytes # 0.2 10*3/uL (0.11-0.8); Monocytes % 1.9 % (1.7-12.7); Neutrophils # 7.2 10*3/uL (1.4-7.4); Neutrophils % 89.5 % (38.7-73.9); Platelet Count 167 T/CUMM (130-400); Red Blood Count 3.57 MC/CUMM (3.8-5.5); Red Cell Distribution Width 13.2 % (9.3-17.3)
[2016-09-12 01:27] LABS: Albumin 2.5 G/DL (3.4-5.0); Bilirubin,Total 0.8 MG/DL (0.2-1.0); Potassium 4.8 MMOL/L (3.5-5.1); Total Protein 6.1 G/DL (6.4-8.3)
[2016-09-12] MEDS: PANTOPRAZOLE 40 MG TABLET PO SCH (08:48)
[2016-09-12] MEDS: POTASSIUM CHLORIDE 20 MEQ TABLET PO SCH ×2 (08:49→20:45)
[2016-09-12] MEDS: CARVEDILOL 3.125 MG TABLET PO SCH ×2 (08:49→20:43)
[2016-09-12] MEDS: ALLOPURINOL 100 MG TABLET PO SCH (08:49)
[2016-09-12] MEDS: ASPIRIN EC 325 MG TABLET PO SCH (08:49)
[2016-09-12] MEDS: POLYETHYLENE GLYCOL POWDER 17 GM PACK PO SCH (08:49)
[2016-09-12] MEDS: FUROSEMIDE 40 MG/4 ML VIAL IV SCH ×2 (12:40→16:56)
--- NOTE | 2016-09-12 13:59 | Hospitalist Progress Note ---
Assessment and Plan (1) CHF (congestive heart failure), NYHA class IV Status: Acute Assessment and plan: 1)acute exacerbation of her heart failure- diuresing, feels better today and exam improved compared to report in H&P. 2)fever- none here, may be due to UTI. Culture pending. She has developed hematuria again, and I will stop her lovenox. H&H down from admit. On Ceftriaxone. 3)end of life goals- discussed with her daughter at length. She wants to take her home and is going to consider hospice. Janis from social work has also talked with her. I assured her we would treat her current symptoms prior to sending her home, and that we would take the discharge date one day at a time. 4)chronic afib 5)pacemaker 6)CKD stage 4 7)chest pain- none now. Current Visit: Yes (2) Hematuria Status: Acute Current Visit: No (3) Pulmonary hypertension Status: Chronic Current Visit: No (4) CKD (chronic kidney disease) stage 4, GFR 15-29 ml/min Status: Chronic Current Visit: Yes (5) Debility Status: Acute Current Visit: Yes (6) Atypical chest pain Status: Acute Current Visit: Yes (7) Fever Status: Acute Current Visit: Yes (8) UTI (urinary tract infection) Status: Acute Current Visit: Yes Hospitalist: Subjective Interval history: Mrs Elise was here with edema several weeks ago, went to Swing bed fo r2 weeks then returned last night after 2 days at home. Her daughter says she and the patient want to be at home and I talked with the daughter about hospice. She is going to think about it but is leaning toward hospice but having trouble accepting that her mother's heart is failing and that her life expectancy meets hospice requirements. She is attracted to the idea of her mother receiving her care at home and not returning to the hospital. The patient is DNR. I spent 15 minutes talking to her and the rest of the family about this. Exam - Constitutional Vitals: Period Temp Pulse Resp BP Sys/Nicholson Pulse Ox Last 24 Hr 97.5 F-100.0 F 60-125 12-30 82-117/52-81 93-100 General appearance: normal weight, no acute distress - Head Head exam: Present: normocephalic, atraumatic - Eye Eye exam: Present: EOMI. Absent: scleral icterus - Respiratory Respiratory exam: Present: rales. Absent: wheezes - Cardiovascular Cardiovascular exam: Present: regular rate and rhythm - GI/Abdominal GI/Abdominal exam: Present: normal bowel sounds, soft. Absent: tenderness - Extremities Exam Extremities exam: Absent: edema Results - Labs CBC & BMP: 09/12/16 00:37 09/12/16 00:37 Lab Results: I have reviewed the past 24 hour labs
[2016-09-12] MEDS: cefTRIAXone 1,000 MG in SODIUM CHLORIDE 0.9% 100 ML IV SCH (20:45)
--- NOTE | 2016-09-12 22:44 | Cardiology Consult Note ---
I, Kim Argueta RN, am scribing for, and in the presence of, Marvel Clark MD 22:44. Assessment and Plan - Time spent with patient Time spent with patient: Greater than 30 minutes (Due to assessment, planning, documentation, medication review) (1) Chest pain Status: Acute Assessment and plan: Differential diagnosis of the chest pain would be coronary disease, GI, or muscle skeletal Troponins are flat, suggesting this is not CAD, could relate to her chronic renal insufficiency Her history is nondiagnostic and fairly poor and vague Repeat full cardiac isoenzymes in the morning Agree with considering DNR Borderline low blood pressure --we will change the furosemide to 80 mg p.o. every morning Will make sure she is on a proton pump inhibitor. Elevate head of bed for reflux precautions Prognosis remains guarded I will follow along with you. Thank you for allowing me to participate in this patient's care Current Visit: Yes (2) Peripheral edema Status: Chronic Current Visit: Yes (3) UTI (urinary tract infection) Status: Acute Current Visit: Yes (4) Chronic atrial fibrillation Status: Chronic Current Visit: Yes History of Present Illness - Data of Consult Patient: known to practice within the last 3 years Consult date: 09/11/16 Requesting Physician: Jonas Arguelles - Consult Narrative Reason for consult: Chest pain History of present illness: Tourist Cabin Keeper: Dr. Gong Ms. Elise is a 85 year old female who is routinely followed by Dr. Gong with a history of hypertension, chronic atrial fibrillation, GI bleed, edema, and heart failure. She is a poor historian, the daughter is at bedside and assists with history. Dr. Gong's note in February 2016 notes that she had a GI bleed at [facility] in March 2013, and has been off aspirin but has been tolerating Eliquis 2.5 mg twice daily without difficulty. However she went home swing bed over the weekend and the daughter reports the Eliquis as well as some other medications were stopped. She is not aware of why they were stopped. She had a single-chamber pacemaker placed September 08, [address] Andres for severe symptomatic bradycardia. Other surgical history includes bilateral cataracts and thyroidectomy. She denies ever having had a heart catheterization or stress test and I do not see any records of this. Echocardiogram done August 16, 2016 with ejection fraction of 35-40%, mild to moderate mitral regurgitation, severe tricuspid valve regurgitation, mild pulmonic valve insufficiency. She is unaware of her family history. She reports she is a lifetime non-smoker. She lives with her daughter, uses a cane to assist with ambulation, reports no recent falls. According to the daughter Ms. Elise began complaining of what she called "heart pain". I am unable to find that any more information from the patient at this time as she only wants to talk about her weak knees. I asked the daughter where the patient was complaining of the pain being in the daughter points to the epigastric region. The daughter reports there were no specific triggers or alleviators. She reports she has not complained of any pain today, and she is not sure when this pain was relieved. Ms. Elise has chronic shortness of breath that gets worse with exertion. They report this was worse than normal yesterday. She also reports being weak and dizzy. EKG on admission showed atrial fibrillation with heart rate of 84. Troponin has been 0.339, 0.304, and 0.288. BNP on admission was 1635. Chest x-ray showed minimal interstitial prominence which may represent underlying atelectasis/ scarring or very mild degree of interstitial edema changes. Urinalysis with leukocytosis, C & S to follow. She was given a GI cocktail, IV morphine, and Lasix 40 IV 1 dose in the emergency department. She was also started on IV antibiotics. Ms. Elise is seen resting in bed in no acute distress. She denies any pain at present and says her breathing is better today. She is somewhat confused. She is oriented to person, but confused about place and time. lunchroom monitor currently shows atrial fibrillation with heart rates in the 60s. She has some brawny edema noted to her lower extremities. Lasix was also stopped when she was discharged in swing bed, again the daughter is unsure the reasoning. She is currently getting Lasix 80 mg IV twice daily. Her creatinine on admission and today is 2.30, we will continue to monitor this. Her pressures been on the low side, this morning 92/53. CC: Sandra De Oliveira MD - Home Medications and Allergies Home Medications: Home Medications Medication Instructions Recorded Confirmed Type Loratadine [Loratadine] 10 mg PO DAILY PRN 09/11/16 09/11/16 History Potassium Chloride 20 meq PO BID 09/11/16 09/11/16 History Allergies/Adverse Reactions: Allergies Allergy/AdvReac Type Severity Reaction Status Date / Time No Known Allergies Allergy Verified 09/11/16 17:27 - Constitutional Constitutional: Present: as per HPI - EENT Eyes: Present: requires corrective lense. Absent: loss of vision Ears: Present: decreased hearing. Absent: ear pain, tinnitus Nose, mouth and throat: Absent: dysphagia, epistaxis, headache(s), neck pain - Cardiovascular Cardiovascular: Present: chest pain at rest, dyspnea, dyspnea on exertion, edema , lightheadedness. Absent: diaphoresis, radiating jaw, neck or arm pain, orthopnea, palpitations - Respiratory Respiratory: Present: cough, dyspnea, dyspnea on exertion. Absent: hemoptysis, wheezing - Gastrointestinal Gastrointestinal: Present: constipation. Absent: abdominal pain, diarrhea, hematemesis, hematochezia, melena, nausea, vomiting - Genitourinary Genitourinary: Absent: dysuria, hematuria - Musculoskeletal Musculoskeletal: Present: limited range of motion, muscle weakness - Neurological Neurological: Present: abnormal gait, abnormal speech, confusion, dizziness. Absent: frequent falls, headache(s), syncope - Psychiatric Psychiatric: Present: confusion. Absent: depression - Endocrine Endocrine: Present: fatigue - Hematologic/Lymphatic Hematologic/Lymphatic: Present: easy bruising Medical,Surgical,& Family Hx - Medical History Cardio: History of: Cardiac Dysrhythmia (CHRONIC AFIB), CHF, Hypertension, Pacemaker Psychological: History of: Depression Endocrine: History of: Thyroid Disorder Rheumatology: History of;: Gout Renal: History of: Renal Failure (chronic kidney disease) Gastrointestinal: History of: GI Problems (constipation) Musculoskeletal: History of: Musculoskeletal Problems (ARTHRITIS TO RIGHT KNEE) Hematology: History of: Anemia - Surgical History Cardiac Surgeries: Sugical HX of: Internal Defibrillator (Single chamber pacemaker placed 09/08/1959) HEENT Surgeries: Surgical HX of: Eye Surgery (Bilateral cataracts), Thyroid Surgery (1999) Abdominal Surgeries: Surgical HX of: Colonoscopy - Family History Family History: Reports;: Family Heart Disease, Family Hypertension - Social History Smoking Status: Never smoker Have you smoked in the last 12 months: No Frequency of Alcohol Use: None Type of Drug Use: None Lives With:: Children Functional capacity: uses cane/walker Physical Examination Vital Signs Temp Pulse Resp BP Pulse Ox 100.0 F H 98 H 16 117/72 96 09/11/16 17:23 09/11/16 17:23 09/11/16 17:23 09/11/16 17:23 09/11/16 17:23 General: Present: Appears Well, No Apparent Distress HEENT: Present: PERRL, Mucus Membranes Moist Neck: Present: Supple Neck, Midline Trachea, No Bruit Cardiac: Present: Irregularly Regular Lungs: Present: Scattered Rhonchi. Absent: Oxygen Neuro: Absent: Resting Tremor, Essential Tremor Abdomen: Present: Soft, Active Bowel Sounds, Non-Tender Skin: Absent: Rash, Suspicious Lesions Musculoskeletal: Present: Decreased Range of Motion Gait: Present: Poor Gait Extremities: Present: Edema (Brawny edema to bilateral lower extremities). Absent: Normal Gait, Normal Upper Extr. Pulses (Weak pulses), Normal Lower Extr. Pulses (Weak pulses) Result/EKG - Labs CBC & BMP: 09/12/16 00:37 09/12/16 00:37 Lab Results: I have reviewed the past 24 hour labs Labs: Laboratory Results - last 24 hr 09/11/16 09/11/16 09/11/16 17:51 17:51 17:51 WBC RBC Hgb Hct MCV MCH MCHC RDW Plt Count MPV Neut % (Auto) Lymph % (Auto) [place] % (Auto) Eos % (Auto) Baso % (Auto) Neut # (Auto) Lymph # (Auto) [place] # (Auto) Eos # (Auto) Baso # (Auto) Immature Gran % Nucleated RBC % Immature Gran # Nucleated RBCs # INR 1.0 PT Patient/Control Mix 10.9 Sodium 132 L Potassium 4.7 Chloride 89 L Carbon Dioxide 34 H Anion Gap 13.7 BUN 66 H Creatinine 2.30 H GFR Calculation 21 BUN/Creatinine Ratio 28.00 H Glucose 115 H Calculated Osmolality 283.5 Calcium 9.8 Magnesium 3.0 H Total Bilirubin 1.00 AST 30 ALT 19 Alkaline Phosphatase 164 H Troponin I B-Natriuretic Peptide 1635 H Total Protein 7.9 Albumin 3.0 L Globulin 4.9 H Albumin/Globulin Ratio 0.6 L Lipase 227.0 Urine Color Urine Appearance Urine pH Ur Specific [place] Urine Protein Urine Glucose (UA) Urine Ketones Urine Blood Urine Nitrate Urine Bilirubin Urine Urobilinogen Urine Leukocytes Urine RBC Urine WBC Ur Squamous Epith Cells Ur Transition Epith Cell Hyaline Casts Urine Mucus Ur Culture Indicated? 09/11/16 09/11/16 09/11/16 17:51 17:51 18:26 WBC 7.7 RBC 4.41 Hgb 15.1 Hct 42.9 MCV 97.3 MCH 34 MCHC 35.2 RDW 13.2 Plt Count 148 MPV 10.1 Neut % (Auto) 81.0 H Lymph % (Auto) 11.6 L [place] % (Auto) 6.8 Eos % (Auto) 0.0 Baso % (Auto) 0.1 Neut # (Auto) 6.2 Lymph # (Auto) 0.9 L [place] # (Auto) 0.5 Eos # (Auto) 0.0 Baso # (Auto) 0.0 Immature Gran % 0.5 Nucleated RBC % 0.0 Immature Gran # 0.04 Nucleated RBCs # 0.00 INR PT Patient/Control Mix Sodium Potassium Chloride Carbon Dioxide Anion Gap BUN Creatinine GFR Calculation BUN/Creatinine Ratio Glucose Calculated Osmolality Calcium Magnesium Total Bilirubin AST ALT Alkaline Phosphatase Troponin I 0.339 H B-Natriuretic Peptide Total Protein Albumin Globulin Albumin/Globulin Ratio Lipase Urine Color Yellow Urine Appearance Slightly hazy Urine pH 6.0 Ur Specific [place] 1.013 Urine Protein 30 Urine Glucose (UA) Negative Urine Ketones Negative Urine Blood Negative Urine Nitrate Negative Urine Bilirubin Negative Urine Urobilinogen 2.0 H Urine Leukocytes Small H Urine RBC 2 Urine WBC 8 Ur Squamous Epith Cells Occasional Ur Transition Epith Cell Occasional Hyaline Casts 1 Urine Mucus Occasional Ur Culture Indicated? Results to follow 09/11/16 09/12/16 09/12/16 20:39 00:37 00:37 WBC 8.0 RBC 3.57 L Hgb 11.9 L D Hct 34.9 L MCV 97.8 MCH 33 MCHC 34.1 RDW 13.2 Plt Count 167 MPV 9.9 Neut % (Auto) 89.5 H Lymph % (Auto) 7.6 L [place] % (Auto) 1.9 Eos % (Auto) 0.0 Baso % (Auto) 0.1 Neut # (Auto) 7.2 Lymph # (Auto) 0.6 L [place] # (Auto) 0.2 Eos # (Auto) 0.0 Baso # (Auto) 0.0 Immature Gran % 0.9 Nucleated RBC % 0.0 Immature Gran # 0.07 Nucleated RBCs # 0.00 INR PT Patient/Control Mix Sodium Potassium Chloride Carbon Dioxide Anion Gap BUN Creatinine GFR Calculation BUN/Creatinine Ratio Glucose Calculated Osmolality Calcium Magnesium Total Bilirubin AST ALT Alkaline Phosphatase Troponin I 0.304 H 0.288 H B-Natriuretic Peptide Total Protein Albumin Globulin Albumin/Globulin Ratio Lipase Urine Color Urine Appearance Urine pH Ur Specific [place] Urine Protein Urine Glucose (UA) Urine Ketones Urine Blood Urine Nitrate Urine Bilirubin Urine Urobilinogen Urine Leukocytes Urine RBC Urine WBC Ur Squamous Epith Cells Ur Transition Epith Cell Hyaline Casts Urine Mucus Ur Culture Indicated? 09/12/16 00:37 WBC RBC Hgb Hct MCV MCH MCHC RDW Plt Count MPV Neut % (Auto) Lymph % (Auto) [place] % (Auto) Eos % (Auto) Baso % (Auto) Neut # (Auto) Lymph # (Auto) [place] # (Auto) Eos # (Auto) Baso # (Auto) Immature Gran % Nucleated RBC % Immature Gran # Nucleated RBCs # INR PT Patient/Control Mix Sodium 136 Potassium 4.8 Chloride 91 L Carbon Dioxide 35 H Anion Gap 14.8 BUN 68 H Creatinine 2.30 H GFR Calculation 21 BUN/Creatinine Ratio 29.00 H Glucose 120 H Calculated Osmolality 292.0 Calcium 9.0 Magnesium Total Bilirubin 0.80 AST 19 ALT 15 Alkaline Phosphatase 137 H Troponin I B-Natriuretic Peptide Total Protein 6.1 L Albumin 2.5 L Globulin 3.6 H Albumin/Globulin Ratio 0.6 L Lipase Urine Color Urine Appearance Urine pH Ur Specific [place] Urine Protein Urine Glucose (UA) Urine Ketones Urine Blood Urine Nitrate Urine Bilirubin Urine Urobilinogen Urine Leukocytes Urine RBC Urine WBC Ur Squamous Epith Cells Ur Transition Epith Cell Hyaline Casts Urine Mucus Ur Culture Indicated? - Diagnostic Findings Procedure: Chest x-ray: report reviewed by me - EKG EKG results: interpreted by me EKG shows: atrial fibrillation Eduardo Jackson Dale, MD, personally performed the services described in this documentation, ascribed by Kim Argueta RN in my presence, and it is both accurate and complete .
[2016-09-13 05:58] LABS: Calcium 9.5 MG/DL (8.5-10.1); Osmolality,Calculated 290.4 MOS/KG (273-304)
[2016-09-13 07:47] LABS: Basophils % 0.1 % (0.0-0.8); Hematocrit 32.5 VOL% (35.7-47.0); Hemoglobin 11.1 GM/DL (12.0-16.0); Immature Granulocytes % 0.7 %; Immature Granulocytes Absolute 0.09 #; Lymphocytes # 0.8 10*3/uL (1.4-4.0); Lymphocytes % 6.4 % (21.3-54.2); Mean Corpuscular HGB Conc 34.2 GM/DL (32-36); Mean Corpuscular Hemoglobin 34 PG (27-34); Mean Corpuscular Volume 99.7 FL (87-102); Mean Platelet Volume 10.6 FL (9.6-12.0); Monocytes # 0.5 10*3/uL (0.11-0.8); Monocytes % 4.2 % (1.7-12.7); Neutrophils # 10.7 10*3/uL (1.4-7.4); Neutrophils % 88.6 % (38.7-73.9); Platelet Count 174 T/CUMM (130-400); Red Blood Count 3.26 MC/CUMM (3.8-5.5); Red Cell Distribution Width 13.2 % (9.3-17.3); White Blood Count 12.1 T/CUMM (4-12)
[2016-09-13] MEDS: ALLOPURINOL 100 MG TABLET PO SCH (08:45)
[2016-09-13] MEDS: FUROSEMIDE 80 MG TABLET PO SCH (08:45)
[2016-09-13] MEDS: ASPIRIN EC 325 MG TABLET PO SCH (08:45)
[2016-09-13] MEDS: PANTOPRAZOLE 40 MG TABLET PO SCH (08:45)
[2016-09-13] MEDS: POLYETHYLENE GLYCOL POWDER 17 GM PACK PO SCH (08:45)
[2016-09-13] MEDS: CARVEDILOL 3.125 MG TABLET PO SCH ×2 (08:45→20:33)
[2016-09-13] MEDS: POTASSIUM CHLORIDE 20 MEQ TABLET PO SCH ×2 (08:47→20:33)
--- NOTE | 2016-09-13 09:41 | Hospitalist Progress Note ---
<Natalia Chenanthony - Last Filed: 09/13/16 09:51> Assessment and Plan (1) CHF (congestive heart failure), NYHA class IV Status: Acute Assessment and plan: The patient has improved since admission. We will continue to diurese as previously ordered. Case management to speak with family regarding hospice care. Current Visit: Yes (2) CKD (chronic kidney disease) stage 4, GFR 15-29 ml/min Status: Chronic Current Visit: Yes (3) UTI (urinary tract infection) Status: Acute Assessment and plan: Urine culture is still pending, she has remained afebrile. No hematuria noted. We will continue ceftriaxone as previously ordered. Current Visit: Yes Hospitalist: Subjective Interval history: Patient seen and examined; no significant overnight events reported. Patient states she feels better. No family is present at the bedside. Exam - Constitutional Vitals: Period Temp Pulse Resp BP Sys/Nicholson Pulse Ox Last 24 Hr 97.6 F-98.2 F 60-110 16-20 86-108/51-62 93-99 General appearance: normal weight, no acute distress - Head Head exam: Present: normal inspection, normocephalic - Eye Eye exam: Present: EOMI, conjunctival injection Pupils: Present: NICK, normal accommodation - ENT ENT exam: Present: normal exam, normal external ear exam, normal oropharynx - Neck Neck exam: Present: normal inspection. Absent: lymphadenopathy, meningismus, thyromegaly - Respiratory Respiratory exam: Present: clear to auscultation bilaterally - Cardiovascular Cardiovascular exam: Present: irregular rhythm. Absent: carotid bruit, diastolic murmur, gallop, JVD, rubs, systolic murmur - GI/Abdominal GI/Abdominal exam: Present: normal bowel sounds, soft - Extremities Exam Extremities exam: Present: normal inspection, normal capillary refill, full ROM - Back Exam Back exam: Present: normal inspection - Neurological Exam Neurological exam: Present: alert, oriented X3 - Psychiatric Psychiatric exam: Present: normal affect, normal mood - Skin Skin exam: Present: normal color, warm, dry Results - Labs CBC & BMP: 09/13/16 04:24 09/13/16 06:40 Lab Results: I have reviewed the past 24 hour labs <Mei Borrego - Last Filed: 09/13/16 15:43> Exam - Constitutional Vitals: Period Temp Pulse Resp BP Sys/Nicholson Pulse Ox Last 24 Hr 97.6 F-98.3 F 60-110 16-20 86-108/51-62 95-100 Exam: A and Ox 3, speaking in full sentences RRR no M faint rales in right lung base, nonlabored Soft, NT, ND, +BS Warm no c/c/e Results - Labs CBC & BMP: 09/13/16 04:24 09/13/16 06:40 - Impressions Agree with A and P by HOUSE WORKER GENERAL. D/W pt and nurse at bedside. Probably can dc in am with hospice. She requests hospital bed, bedside commode as equipment. Case mgt to arrange. I explained that her CHF is a chronic condition and will likely not resolve and may have recurrent flare ups. She expressed understanding.
[2016-09-13 20:23] LABS: Troponin I Only 0.249 NG/ML (0.00-0.045)
[2016-09-13] MEDS: cefTRIAXone 1,000 MG in SODIUM CHLORIDE 0.9% 100 ML IV SCH (20:32)
--- NOTE | 2016-09-14 00:02 | Cardiology Progress Note ---
IEllie April RN, am scribing for, and in the presence of, Marvel Clark MD 00:02. Assessment and Plan (1) Chest pain Status: Acute Assessment and plan: Initial assessment and plan 09/12/2016: Differential diagnosis of the chest pain would be coronary disease, GI, or muscle skeletal Troponins are flat, suggesting this is not CAD, could relate to her chronic renal insufficiency Her history is nondiagnostic and fairly poor and vague Repeat full cardiac isoenzymes in the morning Agree with considering DNR Borderline low blood pressure --we will change the furosemide to 80 mg p.o. every morning Will make sure she is on a proton pump inhibitor. Elevate head of bed for reflux precautions Prognosis remains guarded I will follow along with you. Assessment and plan 09/13/2016: The patient is up in a chair and feeling slightly better. Slightly less shortness of breath Potassium is elevated. Kayexalate was given I will discontinue the potassium supplementation I encouraged the patient to continue to be out of bed as much as possible She is talking about going home tomorrow. Okay with me whenever you're ready. Her prognosis is very guarded. Current Visit: Yes (2) Peripheral edema Status: Chronic Current Visit: Yes (3) UTI (urinary tract infection) Status: Acute Current Visit: Yes (4) Chronic atrial fibrillation Status: Chronic Current Visit: Yes Cardiology - PN: Subj Interval history: Student Counsellor: Dr. Gong Ms. Alba is sitting up in chair in no acute distress. She denies any chest pain or shortness of breath. threat monitoring analyst currently shows a defibrillation with heart rates in the 60s. She continues to have some brawny edema lower extremities. Her Lasix was changed from IV to p.o. yesterday. Her creatinine is increased at 2.8 today. Potassium is high at 5.8. Cardiac biomarkers have been ordered for today, results are pending. Exam (Progress Note) - Constitutional Vitals: Period Temp Pulse Resp BP Sys/Nicholson Pulse Ox Last 24 Hr 97.6 F-98.3 F 61-110 16-20 86-108/51-62 95-100 Exam: General: Present: Appears Well, No Apparent Distress HEENT: Present: PERRL, Mucus Membranes Moist Neck: Present: Supple Neck, Midline Trachea, No Bruit Cardiac: Present: Irregularly Regular Lungs: Present: Scattered Rhonchi. Absent: Oxygen Neuro: Absent: Resting Tremor, Essential Tremor Abdomen: Present: Soft, Active Bowel Sounds, Non-Tender Skin: Absent: Rash, Suspicious Lesions Musculoskeletal: Present: Decreased Range of Motion Gait: Present: Poor Gait Extremities: Present: Edema (Brawny edema to bilateral lower extremities). Absent: Normal Gait, Normal Upper Extr. Pulses (Weak pulses), Normal Lower Extr. Pulses (Weak pulses) Result/EKG - Labs CBC & BMP: 09/13/16 04:24 09/13/16 06:40 Lab Results: I have reviewed the past 24 hour labs Labs: Laboratory Results - last 24 hr 09/13/16 09/13/16 09/13/16 04:24 04:24 06:40 WBC 12.1 H D RBC 3.26 L Hgb 11.1 L Hct 32.5 L MCV 99.7 MCH 34 MCHC 34.2 RDW 13.2 Plt Count 174 MPV 10.6 Neut % (Auto) 88.6 H Lymph % (Auto) 6.4 L [place] % (Auto) 4.2 Eos % (Auto) 0.0 Baso % (Auto) 0.1 Neut # (Auto) 10.7 H Lymph # (Auto) 0.8 L [place] # (Auto) 0.5 Eos # (Auto) 0.0 Baso # (Auto) 0.0 Immature Gran % 0.7 Nucleated RBC % 0.0 Immature Gran # 0.09 Nucleated RBCs # 0.00 Sodium 133 L Potassium 6.0 H* D 5.8 H Chloride 89 L Carbon Dioxide 33 H Anion Gap 17.0 H BUN 81 H Creatinine 2.80 H GFR Calculation 17 BUN/Creatinine Ratio 28.00 H Glucose 109 H Calculated Osmolality 290.4 Calcium 9.5 - EKG EKG results: interpreted by me EKG shows: atrial fibrillation I, Marvel Clark MD, personally performed the services described in this documentation, ascribed by Kim Argueta RN in my presence, and it is both accurate and complete .
[2016-09-14 05:21] LABS: Basophils % 0.1 % (0.0-0.8); Hematocrit 33.3 VOL% (35.7-47.0); Hemoglobin 11.1 GM/DL (12.0-16.0); Immature Granulocytes % 0.8 %; Immature Granulocytes Absolute 0.06 #; Lymphocytes # 0.8 10*3/uL (1.4-4.0); Lymphocytes % 10.8 % (21.3-54.2); Mean Corpuscular HGB Conc 33.3 GM/DL (32-36); Mean Corpuscular Hemoglobin 33 PG (27-34); Mean Corpuscular Volume 98.8 FL (87-102); Mean Platelet Volume 9.9 FL (9.6-12.0); Monocytes # 0.5 10*3/uL (0.11-0.8); Monocytes % 6.1 % (1.7-12.7); Neutrophils # 6.4 10*3/uL (1.4-7.4); Neutrophils % 82.2 % (38.7-73.9); Platelet Count 183 T/CUMM (130-400); Red Blood Count 3.37 MC/CUMM (3.8-5.5); Red Cell Distribution Width 13.3 % (9.3-17.3); White Blood Count 7.8 T/CUMM (4-12)
[2016-09-14 06:07] LABS: Calcium 9.1 MG/DL (8.5-10.1); Magnesium 3.2 MG/DL (1.8-2.4); Osmolality,Calculated 296.2 MOS/KG (273-304); Potassium 5.5 MMOL/L (3.5-5.1)
[2016-09-14 06:22] LABS: Risk Ratio 2.34; VLDL CHOLESTEROL 18.2 MG/DL
--- NOTE | 2016-09-14 08:56 | Discharge Summary ---
<Parminder Wilkins - Last Filed: 09/14/16 09:15> Hospital Course - Hospital Course Hospital Course: Ms. Elise is a 85-year-old female patient with history of CHF, A. fib, pulmonary hypertension, pacemaker, and CKD that presented to the ED on 09/11 with complaints of shortness of breath and chest pain started about 30 minutes prior to arrival. The patient had just been released from the [facility] bed on Monday. In addition to the chest pain shortness of breath patient also complained of dyspnea on exertion, edema, cough, and decreased appetite. Chest x-ray revealed minimal interstitial prominence. Patient was admitted to the hospitalist service for further evaluation and treatment. Patient was noted to have a UTI so she was started on IV antibiotics (ceftriaxone) and diuresed with Lasix 80 mg IV twice daily. Patient also had an increase in cardiac enzymes and a BNP of 1635. Cardiology was consulted to evaluate the patient. Patient was changed to Lasix 80 mg p.o. every morning. Elevated enzymes were thought to be suggestive of her chronic renal insufficiency. Last incident was noted to be 0.249 a decrease from the 0.339 patient was noted to have on admission. Patient also had an elevated potassium and was given Kayexalate for treatment. On 09/13 cardiology cleared patient for discharge from their standpoint. Pt's vital signs are stable and she is ready to be discharged to home. MD to follow. Specialty Discharge - Follow Up or Referrals Follow up with: Oleg Whaley MD [Physician] - 1 Week [facility] [Other] - 2 Weeks Discharge Plan - Discharge Data Disposition: Hospice - Home - Discharge Medications New Acetaminophen Tab [Tylenol Tab] 650 mg PO Q4H PRN tablet PRN Reason: Temperature greater than 101F Albuterol/Ipratropium Neb [Duoneb] 3 ml RESP TX RT Q4H PRN #30 vial PRN Reason: Shortness Of Breath/Wheezing Allopurinol [Zyloprim] 100 mg PO DAILY #30 tablet Carvedilol [Coreg] 3.125 mg PO BID #60 tablet Furosemide Tab [Lasix Tab] 80 mg PO DAILY #30 tablet Polyethylene Glycol Powder [Miralax] 17 gm PO DAILY Aspirin EC Tab 325 mg PO DAILY tablet Pantoprazole Tab [Protonix Tab] 40 mg PO DAILY #30 tablet Discontinued Potassium Chloride 20 meq PO BID Loratadine [Loratadine] 10 mg PO DAILY PRN PRN Reason: Allergy Symptoms - Follow Up or Referral - Forms/Instructions Instructions: Heart Failure (DC), Chronic Kidney Disease (DC) Exam - Constitutional Vitals: Period Temp Pulse Resp BP Sys/Nicholson Pulse Ox Last 24 Hr 97.3 F-97.7 F 59-65 16-18 90-118/55-70 92-97 Discharge Results Procedures and tests throughout hospitalization: Pending Orders 09/11/16 18:26 Blood Culture Stat 09/15/16 04:00 BMP w/ Mg [Basic Metabolic Panel w/Mg] IN AM CBC [Comp Blood Count Auto Diff] IN AM 09/16/16 04:00 BMP w/ Mg [Basic Metabolic Panel w/Mg] IN AM CBC [Comp Blood Count Auto Diff] IN AM Labs on day of discharge: Labs from last 24 hours 09/14/16 09/14/16 09/14/16 16:20 05:05 05:04 WBC RBC Hgb Hct MCV MCH MCHC RDW Plt Count MPV Neut % (Auto) Lymph % (Auto) [place] % (Auto) Eos % (Auto) Baso % (Auto) Neut # (Auto) Lymph # (Auto) [place] # (Auto) Eos # (Auto) Baso # (Auto) Immature Gran % Nucleated RBC % Immature Gran # Nucleated RBCs # Sodium 134 L Potassium 4.4 5.5 H Chloride 90 L Carbon Dioxide 35 H Anion Gap 14.5 BUN 95 H Creatinine 3.10 H GFR Calculation 15 BUN/Creatinine Ratio 30.00 H Glucose 99 Calculated Osmolality 296.2 Calcium 9.1 Magnesium 3.2 H Total Creatine Kinase CK-MB (CK-2) Troponin I Triglycerides 91 Cholesterol 164 LDL Cholesterol 79.0 VLDL Cholesterol 18.2 HDL Cholesterol 70 H Heart Disease Risk Ratio 2.34 09/14/16 09/13/16 05:04 17:30 WBC 7.8 D RBC 3.37 L Hgb 11.1 L Hct 33.3 L MCV 98.8 MCH 33 MCHC 33.3 RDW 13.3 Plt Count 183 MPV 9.9 Neut % (Auto) 82.2 H Lymph % (Auto) 10.8 L [place] % (Auto) 6.1 Eos % (Auto) 0.0 Baso % (Auto) 0.1 Neut # (Auto) 6.4 Lymph # (Auto) 0.8 L [place] # (Auto) 0.5 Eos # (Auto) 0.0 Baso # (Auto) 0.0 Immature Gran % 0.8 Nucleated RBC % 0.0 Immature Gran # 0.06 Nucleated RBCs # 0.00 Sodium Potassium Chloride Carbon Dioxide Anion Gap BUN Creatinine GFR Calculation BUN/Creatinine Ratio Glucose Calculated Osmolality Calcium Magnesium Total Creatine Kinase 40 CK-MB (CK-2) < 1.0 Troponin I 0.249 H Triglycerides Cholesterol LDL Cholesterol VLDL Cholesterol HDL Cholesterol Heart Disease Risk Ratio Preliminary micro results at discharge 09/11/16 18:26 Blood Culture - Preliminary Blood No growth at 1 day 09/11/16 18:26 Blood Culture - Preliminary Blood No growth at 1 day DS: Provider Date of admission: 09/11/16 19:03 Primary care physician: . Sofya PCP Attending physician on admission: oJnas Arguelles MD Consults: 09/11/16 19:46 Consult to Physician [CONS] Routine Comment: Consulting Provider: Cardiology - [facility] When should Consulting Provider be notified: In am Consult to Specialist Group: Cardiology Person Notified: ANAIS Date Notified: 09/12/16 Time Notified: 08:09/11/16 22:29 Consult to Dietitian [CONS] Routine Reason for Dietitian: Dietary Consult 09/12/16 13:27 Consult to Case Mgmt/Social Srvs [CONS] Routine Reason for Case Mgmt/Social Srvs: Equipment Hospice Referral Consult Comment: hospital bed, shower chair, bedside commode 09/13/16 15:43 Consult to Case Mgmt/Social Srvs [CONS] Routine Reason for Case Mgmt/Social Srvs: Other Consult Comment: daughter was requesting assistance w/ transportation for appointments, etc. Discharging clinician: Parminder Wilkins NP <Mei Borrego - Last Filed: 09/14/16 17:30> Hospital Course - Time spent with patient Time with patient DS: Greater than 30 minutes (43 minutes) Diagnosis - Discharge Diagnosis (1) Atypical chest pain Status: Acute (2) CHF (congestive heart failure), NYHA class IV Status: Acute (3) Debility Status: Acute (4) CKD (chronic kidney disease) stage 4, GFR 15-29 ml/min Status: Chronic (5) Cardiac pacemaker in situ Status: Chronic (6) Chronic atrial fibrillation Status: Chronic (7) Hematuria Status: Acute (8) Pulmonary hypertension Status: Chronic Discharge Plan - Discharge Data Condition at Discharge: Stable Discharge Diet: heart healthy, low salt diet Activity: resume usual activities as tolerated, other (Weigh self daily. If weight increases or decreases by more than 3 pounds notify MD.) Contact your physician if you experience:: fever over 101, Difficulty voiding, Redness or swelling, Nausea/Vomiting, Shortness of breath, Bleeding, pain uncontrolled by pain medications - Forms/Instructions Additional Discharge Instructions: Renal function panel in 2 days. Ok to be drawn by home hospice Exam - Constitutional Exam: See progress note from today for physical exam
[2016-09-14] MEDS: POLYETHYLENE GLYCOL POWDER 17 GM PACK PO SCH (09:46)
[2016-09-14] MEDS: FUROSEMIDE 80 MG TABLET PO SCH (09:46)
[2016-09-14] MEDS: CARVEDILOL 3.125 MG TABLET PO SCH (09:46)
[2016-09-14] MEDS: ASPIRIN EC 325 MG TABLET PO SCH (09:46)
[2016-09-14] MEDS: ALLOPURINOL 100 MG TABLET PO SCH (09:46)
[2016-09-14] MEDS: PANTOPRAZOLE 40 MG TABLET PO SCH (09:47)
[2016-09-14] MEDS ORDERED: SODIUM POLYSTYRENE SULFATE 15 GM/60 ML BOTTLE PO ONE (12:43)
--- NOTE | 2016-09-14 15:24 | Hospitalist Progress Note ---
Hospitalist: Subjective Interval history: Patient developed hematuria overnight which I believe is likely traumatic from the Dow. Dow removed. No fever. Tolerating some p.o. Patient denies chest pain or shortness of breath. She is not speaking much to me today but talks w/ nurse Exam - Constitutional Vitals: Period Temp Pulse Resp BP Sys/Nicholson Pulse Ox Last 24 Hr 97.3 F-97.7 F 59-65 16-18 90-118/55-70 92-97 Exam: Awake and alert RRR no M faint rales in right lung base, nonlabored Soft, NT, ND, +BS Warm no c/c/e Results - Labs CBC & BMP: 09/14/16 05:04 09/14/16 05:05 - Impressions (1) Acute on chronic CHF (congestive heart failure) exacerbation, NYHA class IV (EF35-40%, moderate MR and severe TR) Status: Acute Assessment and plan: The patient has improved since admission. Cont Lasix orally. Pt to dc home with hospice when ready for dc. Current Visit: Yes (2) CKD (chronic kidney disease) stage 4, GFR 15-29 ml/min with hyperkalemia Status: Chronic Current Visit: Yes - Kayexalate po x 1. Recheck labs in am (3) UTI (urinary tract infection) Status: Acute Assessment and plan: Urine culture is negative, she has remained afebrile. We will stop ceftriaxone. Current Visit: Yes (4) Afib with bradycardia s/p pacemaker - No Eliquis due to intermittent hematuria (5) Hematuria - Pt to follow-up with Dr. Whaley for cystoscopy outpt (6) Debility D/W pt and nurse. All questions answered. Specialty Discharge - Follow Up or Referrals
[2016-09-14 17:37] VITALS: BP 106/79
--- NOTE | 2016-09-15 14:32 | Cardiology Progress Note ---
I, Kim Argueta RN, am scribing for, and in the presence of, Marvel Clark MD 14:31. Assessment and Plan (1) Chest pain Status: Acute Assessment and plan: Initial assessment and plan 09/12/2016: Differential diagnosis of the chest pain would be coronary disease, GI, or muscle skeletal Troponins are flat, suggesting this is not CAD, could relate to her chronic renal insufficiency Her history is nondiagnostic and fairly poor and vague Repeat full cardiac isoenzymes in the morning Agree with considering DNR Borderline low blood pressure --we will change the furosemide to 80 mg p.o. every morning Will make sure she is on a proton pump inhibitor. Elevate head of bed for reflux precautions Prognosis remains guarded I will follow along with you. Assessment and plan 09/13/2016: The patient is up in a chair and feeling slightly better. Slightly less shortness of breath Potassium is elevated. Kayexalate was given I will discontinue the potassium supplementation I encouraged the patient to continue to be out of bed as much as possible She is talking about going home tomorrow. Okay with me whenever you're ready. Her prognosis is very guarded. Assessment and plan 09/14/2016: Patient is feeling slightly better Less shortness of breath Potassium is back to normal Continues having renal insufficiency Wanting to be discharged Okay with me for discharge Given her renal insufficiency, her inactivity, and a recurrent heart failure and debility, is a high likelihood that she will be in the hospital intermittently prior to her passing away. Thank you for allowing me to participate in this patient's care Of note, I saw the patient on 09/14/16 and about 9 AM. This note is being finished later. (2) Peripheral edema Status: Chronic (3) UTI (urinary tract infection) Status: Acute (4) Chronic atrial fibrillation Status: Chronic Cardiology - PN: Subj Interval history: E Commerce Web Developer: Dr. Farideh Alba is resting in bed no acute distress. She is sleeping, arouses easily. She denies any chest pain or shortness of breath. Symptomatic currently shows age fibrillation with heart rates in the 60s. She was given Kayexalate and potassium today is 5.5. Troponin was done yesterday 0.249, elevation was thought to be due to renal insufficiency. She is scheduled for discharge today. Patient states she is ready to go. Exam (Progress Note) - Constitutional Vitals: Period Temp Pulse Resp BP Sys/Nicholson Pulse Ox Last 24 Hr 97.4 F-98.3 F 59-65 16-18 90-106/55-64 92-100 Exam: General: Present: Appears Well, No Apparent Distress HEENT: Present: PERRL, Mucus Membranes Moist Neck: Present: Supple Neck, Midline Trachea, No Bruit Cardiac: Present: Irregularly Regular Lungs: Present: Scattered Rhonchi. Absent: Oxygen Neuro: Absent: Resting Tremor, Essential Tremor Abdomen: Present: Soft, Active Bowel Sounds, Non-Tender Skin: Absent: Rash, Suspicious Lesions Musculoskeletal: Present: Decreased Range of Motion Gait: Present: Poor Gait Extremities: Present: Edema (Brawny edema to bilateral lower extremities). Absent: Normal Gait, Normal Upper Extr. Pulses (Weak pulses), Normal Lower Extr. Pulses (Weak pulses) Result/EKG - Labs CBC & BMP: 09/14/16 05:04 09/14/16 16:20 Lab Results: I have reviewed the past 24 hour labs Labs: Laboratory Results - last 24 hr 09/13/16 09/14/16 09/14/16 17:30 05:04 05:04 WBC 7.8 D RBC 3.37 L Hgb 11.1 L Hct 33.3 L MCV 98.8 MCH 33 MCHC 33.3 RDW 13.3 Plt Count 183 MPV 9.9 Neut % (Auto) 82.2 H Lymph % (Auto) 10.8 L [place] % (Auto) 6.1 Eos % (Auto) 0.0 Baso % (Auto) 0.1 Neut # (Auto) 6.4 Lymph # (Auto) 0.8 L [place] # (Auto) 0.5 Eos # (Auto) 0.0 Baso # (Auto) 0.0 Immature Gran % 0.8 Nucleated RBC % 0.0 Immature Gran # 0.06 Nucleated RBCs # 0.00 Sodium Potassium Chloride Carbon Dioxide Anion Gap BUN Creatinine GFR Calculation BUN/Creatinine Ratio Glucose Calculated Osmolality Calcium Magnesium Total Creatine Kinase 40 CK-MB (CK-2) < 1.0 Troponin I 0.249 H Triglycerides 91 Cholesterol 164 LDL Cholesterol 79.0 VLDL Cholesterol 18.2 HDL Cholesterol 70 H Heart Disease Risk Ratio 2.34 09/14/16 05:05 WBC RBC Hgb Hct MCV MCH MCHC RDW Plt Count MPV Neut % (Auto) Lymph % (Auto) [place] % (Auto) Eos % (Auto) Baso % (Auto) Neut # (Auto) Lymph # (Auto) [place] # (Auto) Eos # (Auto) Baso # (Auto) Immature Gran % Nucleated RBC % Immature Gran # Nucleated RBCs # Sodium 134 L Potassium 5.5 H Chloride 90 L Carbon Dioxide 35 H Anion Gap 14.5 BUN 95 H Creatinine 3.10 H GFR Calculation 15 BUN/Creatinine Ratio 30.00 H Glucose 99 Calculated Osmolality 296.2 Calcium 9.1 Magnesium 3.2 H Total Creatine Kinase CK-MB (CK-2) Troponin I Triglycerides Cholesterol LDL Cholesterol VLDL Cholesterol HDL Cholesterol Heart Disease Risk Ratio - EKG EKG results: interpreted by me EKG shows: atrial fibrillation Specialty Discharge - Follow Up or Referrals Follow up with: pcp, [Other] - 2 Weeks Oleg Whaley MD [Physician] - 10/03/16 1:45 pm Eduardo Jackson Dale, MD, personally performed the services described in this documentation, ascribed by Kim Argueta RN in my presence, and it is both accurate and complete [id number] .
--- NOTE | 2016-09-15 16:27 | Physician Query Form ---
CLICK EDIT DOCUMENT TO SELECT QUERY ANSWER --> OK --> SIGN Linnea Hsu RN Clinical Crystallography Teacher W) [phone] (f) [phone] [email or web address] PROVIDERS: Make your selection(s) from the choices in EACH section by typing an "x" and enter comments in the comment section. Please use your independent medical judgment in providing your response. This request does not imply that any particular answer is desired or expected. CLINICAL INDICATORS: (Providers should not edit this section) Based on documentation of "Acute on chronic CHF" BNP of 1635. Treated with IV Lasix. Last echo done on 08/16/16 showed ef of 35-40%. Please provide further specificity regarding CHF. ACUITY: ( ) Acute ( ) Chronic (x ) Acute on Chronic ( ) Clinicallly unable to determine TYPE: (x ) Systolic (HFrEF - heart failure with reduced systolic function/EF) ( ) Diastolic (HFpEF - heart failure with preserved systolic function/EF) ( ) Combined Systolic/Diastolic ( ) Other, please specify: ( ) Clinically unable to determine ( ) The patient does NOT have CHF COMMENTS: PLEASE ALSO DOCUMENT RESPONSE IN PROGRESS NOTES AND/OR DISCHARGE SUMMARY Use of terms such as suspected, likely, or probable (associated with a specific diagnosis that is being evaluated, monitored, or treated as if it exists) are acceptable and can be restated in the discharge summary if not ruled out. MTDD
== END 2016-09-14 19:20 | disposition hospice, home (50) | DRG 291 ==
LOC: N.ED 17:20 → N.EDINP 19:03 → SUATTDRO 19:03 → N.TELEN 19:46
PROVIDERS: ADMIT Internal Medicine; ATTEND Pediatrics